=== PATIENT | male | born 1970 | race African-American/Black ===

== ENCOUNTER 2020-10-28 17:59 | Inpatient (IN) | payer MEDICAID, OTHER ==
[~2020-10-28] VITALS: Ht 162.6 cm; Wt 128.3 kg
[2020-10-28] VITALS (8 sets, daily range): BP systolic 98–144; BP diastolic 48–87
[~2020-10-28 17:59] MED LIST: ATOR20TA PO; HYDR-2761 PO; INSU100I13 SQ; LEXAPRO20 MG PO; LISI20TA18 PO; LORA0.5T PO; OMEP20TA8 PO; SERT50TA PO; TRAM50TA PO; TRAZ-118 PO
[2020-10-28] MEDS ORDERED: CYCL10TA2 PO (18:06)
[2020-10-28] MEDS ORDERED: GABA300C18 PO (18:06)
[2020-10-28] MEDS ORDERED: INSU100I13 SQ (18:06)
[2020-10-28] MEDS ORDERED: TRAZ-123 PO (18:06)
[2020-10-28] MEDS ORDERED: INDO25CA21 PO (18:06)
[2020-10-28] MEDS ORDERED: ALLO300T PO (18:06)
[2020-10-28] MEDS ORDERED: OMEP40CA7 PO (18:06)
[2020-10-28] MEDS ORDERED: ATOR20TA58 PO (18:06)
[2020-10-28] MEDS ORDERED: CETI10TA16 PO (18:06)
[2020-10-28] MEDS ORDERED: LISI20TA18 PO (18:06)
[2020-10-28] MEDS ORDERED: AMLO-187 PO (18:06)
--- NOTE | 2020-10-28 18:23 | NUR ---
Pt admitted to room 114 from [facility] ER via EMS at 1730. Pt able to transfer self to bed. Placed on monitor equipment, ST on monitor. O2 sats 98% on 15L NRB. Denies pain. Dr. Collins notified of pts admission and new orders received. See admission for further details.
[2020-10-28] MEDS: ALBUTEROL SULFATE 2.5 MG/3 ML NEBU. NEB SCH (20:42)
[2020-10-28] MEDS ORDERED: NON FORMULARY ITEM (Insulin Glargine,Hum.rec.anlog (Lantus Solostar) 50 UNIT) SQ SCH (21:00)
[2020-10-28] MEDS ORDERED: INDOMETHACIN 25 MG CAPSULE. PO SCH (21:00)
[2020-10-28] MEDS: GABAPENTIN 300 MG CAPSULE. PO SCH (21:17)
[2020-10-28] MEDS: traZODone 100 MG TABLET. PO SCH (21:17)
[2020-10-28] MEDS: LORazepam 0.5 MG TABLET PO SCH (21:17)
[2020-10-28] MEDS: CYCLOBENZAPRINE 10 MG TABLET. PO SCH (21:17)
[2020-10-28] MEDS: INSULIN GLARGINE SYRINGE. SQ SCH (21:18)
[2020-10-28] MEDS: HYDROcodone/APAP 5/325MG 1 TAB TABLET PO PRN (21:18)
[2020-10-28] MEDS: ATORVASTATIN CALCIUM 20 MG TABLET PO SCH (21:18)
[2020-10-29] VITALS (18 sets, daily range): BP systolic 104–161; BP diastolic 63–93
[2020-10-29 05:23] LABS: BASO % 0 % (0-3); EOS % 0 % (0-3); HEMATOCRIT 34.7 % (39.0-53.0); HEMOGLOBIN 11.1 g/dL (13.0-17.5); LYMPH # 0.7 x10^3/uL (1.0-4.8); LYMPH % 3 % (24-48); MEAN CORPUSCULAR HEMOGLOBIN 28 pg (25-35); MEAN CORPUSCULAR HGB CONC 32 g/dL (31-37); MEAN CORPUSCULAR VOLUME 88 fL (79-100); MONO # 0.2 x10^3/uL (0.0-1.1); MONO % 1 % (0-9); NEUT # 23.7 x10^3/uL (1.8-7.7); NEUT % 97 % (31-73); PLATELET COUNT 244 x10^3/uL (140-400); RED BLOOD COUNT 3.93 x10^6/uL (4.30-5.70); RED CELL DISTRIBUTION WIDTH 14.6 % (11.5-14.5); WHITE BLOOD COUNT 24.6 x10^3/uL (4.0-11.0)
[2020-10-29 05:50] LABS: ALBUMIN/GLOBULIN RATIO 0.7 (1.0-1.7); CALCIUM 8.1 mg/dL (8.5-10.1); CREATININE 2.6 mg/dL (0.7-1.3); GFR 31.8; TOTAL BILIRUBIN 0.5 mg/dL (0.2-1.0); TOTAL PROTEIN 7.3 g/dL (6.4-8.2)
[2020-10-29 05:53] LABS: POTASSIUM 6.8 mmol/L (3.5-5.1)
[2020-10-29] MEDS ORDERED: CALCIUM GLUCONATE 1,000 MG/10 ML VIAL. IVP ONE (06:30)
[2020-10-29] MEDS: ALBUTEROL SULFATE 2.5 MG/3 ML NEBU. NEB SCH ×4 (06:38→20:00)
[2020-10-29 06:57] LABS: % LYMPHS 1 % (24-48); % SEGS 99 % (35-66); PLT ESTIMATE ADEQUATE (ADEQUATE)
[2020-10-29 06:58] LABS: POLYCHROMASIA SLIGHT
[2020-10-29] MEDS ORDERED: SODIUM BICARB ADULT 8.4% 50 MEQ/50 ML DISP.SYRIN. IV ONE (07:00)
[2020-10-29] MEDS ORDERED: INSULIN REGULAR 100 UNIT/ML 3ML VIAL. IV ONE (07:00)
[2020-10-29] MEDS ORDERED: DEXTROSE 50% 25 GM / 50ML DISP.SYRIN. IV ONE (07:00)
--- NOTE | 2020-10-29 07:37 | RAD ---
Single AP view of the chest. Comparison: None. Indication: Pneumonia Findings: The heart is not enlarged. There is no pneumothorax or effusion. Right upper lobe consolidation is i dentified. Impression: 1. Right upper lobe consolidated pneumonia. Electronically signed by: Dax Huffman MD (10/29/2020 7:34 AM) [id number]
[2020-10-29] MEDS: HYDROcodone/APAP 5/325MG 1 TAB TABLET PO PRN ×2 (07:50→20:32)
[2020-10-29] MEDS: PANTOPRAZOLE 40 MG TABLET.DR. PO SCH (07:50)
--- NOTE | 2020-10-29 08:28 | PDOC ---
PULMONARY PROGRESS NOTES DATE: 10/29/20 TIME: 08:28 Vitals Vital Signs Date Time Temp Pulse Resp B/P (MAP) Pulse Ox O2 Delivery O2 Flow Rate FiO2 10/29/20 08:00 98.4 110 13 127/66 (86) 100 Venturi Mask 15.0 98.4 Labs Laboratory Tests Test 10/28/20 21:22 10/29/20 03:30 10/29/20 07:43 Glucose (Fingerstick) 218 mg/dL (70-99) 215 mg/dL (70-99) White Blood Count 24.6 x10^3/uL (4.0-11.0) Red Blood Count 3.93 x10^6/uL (4.30-5.70) Hemoglobin 11.1 g/dL (13.0-17.5) Hematocrit 34.7 % (39.0-53.0) Mean Corpuscular Volume 88 fL (79-100) Mean Corpuscular Hemoglobin 28 pg (25-35) Mean Corpuscular Hemoglobin Concent 32 g/dL (31-37) Red Cell Distribution Width 14.6 % (11.5-14.5) Platelet Count 244 x10^3/uL (140-400) Neutrophils (%) (Auto) 97 % (31-73) Lymphocytes (%) (Auto) 3 % (24-48) Monocytes (%) (Auto) 1 % (0-9) Eosinophils (%) (Auto) 0 % (0-3) Basophils (%) (Auto) 0 % (0-3) Neutrophils # (Auto) 23.7 x10^3/uL (1.8-7.7) Lymphocytes # (Auto) 0.7 x10^3/uL (1.0-4.8) Monocytes # (Auto) 0.2 x10^3/uL (0.0-1.1) Eosinophils # (Auto) 0.0 x10^3/uL (0.0-0.7) Basophils # (Auto) 0.0 x10^3/uL (0.0-0.2) Segmented Neutrophils % 99 % (35-66) Lymphocytes % 1 % (24-48) Platelet Estimate Adequate (ADEQUATE) Polychromasia Slight Basophilic Stippling Present Sodium Level 136 mmol/L (136-145) Potassium Level 6.8 mmol/L (3.5-5.1) Chloride Level 100 mmol/L (98-107) Carbon Dioxide Level 28 mmol/L (21-32) Anion Gap 8 (6-14) Blood Urea Nitrogen 41 mg/dL (8-26) Creatinine 2.6 mg/dL (0.7-1.3) Estimated GFR (Cockcroft-Gault) 31.8 BUN/Creatinine Ratio 16 (6-20) Glucose Level 265 mg/dL (70-99) Uric Acid 6.3 mg/dL (3.5-7.2) Calcium Level 8.1 mg/dL (8.5-10.1) Total Bilirubin 0.5 mg/dL (0.2-1.0) Aspartate Amino Transf (AST/SGOT) 21 U/L (15-37) Alanine Aminotransferase (ALT/SGPT) 21 U/L (16-63) Alkaline Phosphatase 105 U/L (46-116) Total Protein 7.3 g/dL (6.4-8.2) Albumin 3.0 g/dL (3.4-5.0) Albumin/Globulin Ratio 0.7 (1.0-1.7) Laboratory Tests Test 10/28/20 21:22 10/29/20 03:30 10/29/20 07:43 Glucose (Fingerstick) 218 mg/dL (70-99) 215 mg/dL (70-99) White Blood Count 24.6 x10^3/uL (4.0-11.0) Red Blood Count 3.93 x10^6/uL (4.30-5.70) Hemoglobin 11.1 g/dL (13.0-17.5) Hematocrit 34.7 % (39.0-53.0) Mean Corpuscular Volume 88 fL (79-100) Mean Corpuscular Hemoglobin 28 pg (25-35) Mean Corpuscular Hemoglobin Concent 32 g/dL (31-37) Red Cell Distribution Width 14.6 % (11.5-14.5) Platelet Count 244 x10^3/uL (140-400) Neutrophils (%) (Auto) 97 % (31-73) Lymphocytes (%) (Auto) 3 % (24-48) Monocytes (%) (Auto) 1 % (0-9) Eosinophils (%) (Auto) 0 % (0-3) Basophils (%) (Auto) 0 % (0-3) Neutrophils # (Auto) 23.7 x10^3/uL (1.8-7.7) Lymphocytes # (Auto) 0.7 x10^3/uL (1.0-4.8) Monocytes # (Auto) 0.2 x10^3/uL (0.0-1.1) Eosinophils # (Auto) 0.0 x10^3/uL (0.0-0.7) Basophils # (Auto) 0.0 x10^3/uL (0.0-0.2) Segmented Neutrophils % 99 % (35-66) Lymphocytes % 1 % (24-48) Platelet Estimate Adequate (ADEQUATE) Polychromasia Slight Basophilic Stippling Present Sodium Level 136 mmol/L (136-145) Potassium Level 6.8 mmol/L (3.5-5.1) Chloride Level 100 mmol/L (98-107) Carbon Dioxide Level 28 mmol/L (21-32) Anion Gap 8 (6-14) Blood Urea Nitrogen 41 mg/dL (8-26) Creatinine 2.6 mg/dL (0.7-1.3) Estimated GFR (Cockcroft-Gault) 31.8 BUN/Creatinine Ratio 16 (6-20) Glucose Level 265 mg/dL (70-99) Uric Acid 6.3 mg/dL (3.5-7.2) Calcium Level 8.1 mg/dL (8.5-10.1) Total Bilirubin 0.5 mg/dL (0.2-1.0) Aspartate Amino Transf (AST/SGOT) 21 U/L (15-37) Alanine Aminotransferase (ALT/SGPT) 21 U/L (16-63) Alkaline Phosphatase 105 U/L (46-116) Total Protein 7.3 g/dL (6.4-8.2) Albumin 3.0 g/dL (3.4-5.0) Albumin/Globulin Ratio 0.7 (1.0-1.7) Medications Active Scripts Medications Dose Route/Sig Max Daily Dose Days Date Category Dose Instructions Cyclobenzaprine Hcl 10 Mg Tablet 1 Tab PO TID 10/28/20 Reported Cetirizine Hcl 10 Mg Tablet 1 Tab PO DAILY 10/28/20 Reported Trazodone Hcl 100 Mg Tablet 1 Tab PO QHS 10/28/20 Reported Omeprazole 40 Mg Capsule.dr 1 Cap PO DAILY 10/28/20 Reported Lisinopril 20 Mg Tablet 1 Tab PO DAILY 10/28/20 Reported Lantus Solostar (Insulin Glargine,Hum.rec.anlog) 100 Unit/1 Ml Insuln.pen 50 Unit SQ QHS 10/28/20 Reported Indomethacin 25 Mg Capsule Unknown Dose PO TID 10 10/28/20 Reported with food Gabapentin (Gabapentin) 300 Mg Capsule 300 Mg PO TID 10/28/20 Reported Atorvastatin Calcium 20 Mg Tablet 1 Tab PO DAILY 10/28/20 Reported Amlodipine Besylate 10 Mg Tablet 10 Mg PO DAILY 10/28/20 Reported Allopurinol 300 Mg Tablet 1 Tab PO DAILY 10/28/20 Reported Hydrocodone-Apap 5-325 (Hydrocodone Bit/Acetaminophen) 1 Each Tablet 2 Tab PO BID PRN 04/07/15 Reported Lorazepam 0.5 Mg Tablet 1 Tab PO BID 04/07/15 Reported Zoloft (Sertraline Hcl) 50 Mg Tablet 1 Tab PO DAILY 04/07/15 Reported Lantus Solostar (Insulin Glargine,Hum.rec.anlog) 100 Unit/1 Ml Insuln.pen 50 Unit SQ QHS 04/07/15 Reported Impression . Full note dictated Acute hypoxemic hypercapnic respiratory failure Right upper lobe pneumonia Morbid obesity Obstructive sleep apnea Okay to transfer out of the intensive care unit see orders RICHARD SCHROEDER MD Oct 29, 2020 08:28
[2020-10-29] MEDS ORDERED: LISINOPRIL 20 MG TABLET PO SCH (09:00)
[2020-10-29] MEDS: GABAPENTIN 300 MG CAPSULE. PO SCH ×3 (09:00→20:32)
[2020-10-29] MEDS ORDERED: IV DEXTROSE 5% 250 ML BAG. IV PRN (09:00)
[2020-10-29] MEDS: CYCLOBENZAPRINE 10 MG TABLET. PO SCH ×3 (09:00→20:32)
[2020-10-29] MEDS ORDERED: DEXTROSE 50% 25 GM / 50ML DISP.SYRIN. IV PRN (09:00)
[2020-10-29] MEDS: LORazepam 0.5 MG TABLET PO SCH ×2 (09:00→20:32)
[2020-10-29 09:08] LABS: BASE EXCESS ABG -1 mmol/L (-3-3); HCO3 ABG 27 mmol/L (21-28); PO2 ABG 91 mmHg (75-108); SAT O2 ABG 96 % (92-99)
[2020-10-29 09:10] LABS: FIO2 ABG 12L; PCO2 ABG 61 mmHg (35-46)
[2020-10-29 09:27] LABS: CALCIUM 8.6 mg/dL (8.5-10.1); CREATININE 2.6 mg/dL (0.7-1.3); GFR 31.8; POTASSIUM 5.2 mmol/L (3.5-5.1)
[2020-10-29] MEDS: PIPERACILLIN/TAZOBACTAM 3.375 GM in IV NORMAL SALINE 50ML 50 ML IV SCH ×2 (09:32→17:13)
[2020-10-29] MEDS: IV NORMAL SALINE 1000ML BAG 1,000 ML IV SCH ×2 (09:32→20:37)
--- NOTE | 2020-10-29 09:51 | NUR ---
Pt is very drowsy and falls asleep during conversation. Scheduled 0900 Ativan and Flexeril held.
--- NOTE | 2020-10-29 10:14 | HP ---
ADMIT DATE: 10/29/2020 HISTORY OF PRESENT ILLNESS: The patient is a 49-year-old -[place] male patient who was seen yesterday at [facility] Emergency Room with a complaint of shortness of breath. The patient stated that his symptoms started about 4 days prior to arrival to the Emergency Room without any known inciting events, trauma or ____. He states that he has been outside more and his allergies ____. He denied any insect bite or other concerning exposure. He initially reported upper respiratory tract infection like symptoms with runny nose and nasal congestion, which he reports migrated to his lungs. Denied any pain, just overall chest tightness and shortness of breath and wheezing which is new for him. He had been a heavy smoker. He used to smoke a pack a day, quit smoking about 7 years ago. He continued to have occasional alcohol drinks, particularly when he watches football games and takes 2-3 beers. He denied any illicit drugs. He denied any fever, headache, lightheadedness, vision changes. He apparently has received his COVID vaccine twice. He was extensively investigated in the Emergency Room. His lab work showed a white cell count 22,900. His blood gases showed a pH of 7.32, pCO2 of 52 and his chemistry showed that his creatinine is up to 2.4. He had also low magnesium. His initial chest x-ray showed the patient has patchy perihilar airspace disease with focal rounded areas of consolidation at the upper to mid zone on the right. This could be related to pneumonia, right upper lobe mass cannot be excluded. Recommend followup imaging and he was initially treated with BiPAP machine. A decision was made to transfer him to [facility] with diagnosis of acute hypoxic respiratory failure, right upper lobe pneumonia, acute kidney injury, poorly controlled type 2 diabetes mellitus and hypertension. Apparently while in the Emergency Room and on his way out, apparently his gurney was tilted to the right side, the patient fell to the ground, when the patient was still trapped, C-spine precautions immediately initiated, ER staff assisted with unbuckling and removing patient safely from scene, impacted into the ER. Vitals obtained and were unremarkable. His primary and secondary survey performed. He did complain of pain in his right upper extremity, right-sided head pain and cervical vertebral pain after a fall. He was transported CT and radiographs imaging performed. 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 PAST MEDICAL HISTORY: Significant for type 2 diabetes mellitus and hypertension. He has apparently history of alcoholism and alcoholic liver disease, acute kidney injury recently as he was admitted to [facility] with acute gastroenteritis and acute kidney injury. His baseline creatinine was about 1.2 mg/dL on 09/17/2020. He also has morbid obesity and obstructive sleep apnea. PAST SURGICAL HISTORY: Noncontributory. ALLERGIES: He has no known drug allergies. MEDICATIONS: He is currently on following medications: He is on sertraline 50 mg once a day, cetirizine 10 mg once a day, amlodipine 10 mg once a day, Protonix 40 mg once a day, Lantus insulin 50 units at bedtime, trazodone 100 mg at bedtime, lorazepam 0.5 mg twice a day, gabapentin 300 mg 3 times a day, cyclobenzaprine 10 mg 3 times a day, atorvastatin 20 mg at bedtime. He is also on hydrocodone/APAP 5/325 two tablets twice a day, lisinopril 20 mg daily. He is also on indomethacin 25 mg 3 times a day. FAMILY HISTORY: He has 3 brothers and 3 sisters, all older and apparently healthy. His father at age of 77 because of complication of Agent [place] and COPD. Mother is still alive at the age of 78 and known to have diabetes and hypertension. SOCIAL HISTORY: He is single, never , has no children. He quit smoking about 5 years ago. He used to smoke a pack a day. He also used to be a heavy alcohol drinker, quit 2 years ago. He continued to have occasional alcohol, mostly when he watches a football games on the weekends, he drinks 2-3 cans of beer. Apparently he is on disability because of his chronic back pain. REVIEW OF SYSTEMS: As per history of present illness. PHYSICAL EXAMINATION: GENERAL: On arrival to the Emergency Room, the patient looked well and was clearly in no apparent respiratory distress. No pallor, jaundice, cyanosis, or thyromegaly. No jugular venous distention, no lower limb edema. VITAL SIGNS: His heart rate was 124, blood pressure is 128/69, temperature was 99.7, respiratory rate was 26 and oxygen saturation was 83% on room air, requiring 15 liters of oxygen to get his oxygen up to 92%. HEAD, EYES, EARS, NOSE, AND THROAT: Normocephalic, atraumatic. NECK: Supple. HEART: Showed normal first and second heart sounds, no gallop, murmur. CHEST: Shows central trachea, equal reduced expansion, reduced air entry, vesicular breath sounds. No crepitation or rhonchi. ABDOMEN: Markedly distended, soft, nontender. NEUROLOGIC: He was awake, alert, responding appropriately. Cranial nerves intact. He moves extremities without difficulty. LABORATORY DATA: His lab work on arrival showed a white cell count 22,900, hemoglobin 11.6, hematocrit 36, MCV 88 and platelet count 270,000 with normal manual differential. His chemistry showed a serum sodium 137, potassium 4.9, chloride 100, bicarbonate 27, anion gap of 10, BUN of 30, creatinine was 2.4. Estimated GFR was 28.8 mL per minute. His glucose was 163, calcium was 7.5, magnesium was 1.5. Total bilirubin, AST, ALT were normal. Alkaline phosphatase slightly elevated, beta natriuretic peptide was 323. Total protein was 6.9, albumin was 3.1. First set of cardiac enzymes was less than 0.017. His venous blood gas showed a pH of 7.32, pCO2 of 52, pO2 of 91, bicarbonate 27 and oxygen saturation was 96% on FIO2 of 15%. His chest x-ray showed a single upright portable exam performed showing lung volumes are low limiting evaluation. There is a focal rounded area of consolidation of the upper and mid zone of the right lung, new from prior study. There is also some patchy and linear opacities at the perihilar region and medial left base, no apparent pleural effusion or pneumothorax. After he fell, he underwent CT scan of the head and cervical spine, which showed no acute intracranial process, no acute osseous abnormality of the cervical spine allowing for significant motion artifact. She has right apical consolidation, possibly infection or contusion given history of trauma, partial imaged cystic mass in the sublingual space, measuring 4.9 cm, suspect process such as a thyroglossal duct cyst. Comparison with prior imaging may be helpful to assess stability if available, otherwise followup contrast enhanced CT of the tissue neck or MRI should be obtained. X-ray of the pelvis showed no acute osseous process in the right shoulder, humerus, forearms and pelvis, demonstrated patchy right perihilar airspace opacity, could represent pneumonia. Recommend followup after treatment completion to ensure resolution. ASSESSMENT AND PLAN: The patient was admitted to [facility] with acute hypoxic respiratory failure. He was on BiPAP machine. He has right upper lobe pneumonia, marked leukocytosis, acute kidney injury, type 2 diabetes mellitus that is poorly controlled and hypertension. We will continue with IV Rocephin and Zithromax. I reconciled all his medications. We will consult the speech coach as well as the kidney specialist. YAN/BIJAN/SAUL DR: Saravanan TID: [id number]
--- NOTE | 2020-10-29 10:30 | CONS ---
DATE OF CONSULTATION: 10/29/2020 REFERRING PHYSICIAN: Dr. Collins. REASON FOR CONSULTATION: Right upper lobe pneumonia, antibiotic management. HISTORY OF PRESENT ILLNESS: A 49-year-old male with history of diabetes, poorly controlled; asthma; hypertension, presented to [facility] ED on 10/28/2020 with worsening shortness of breath. He had onset about 4 days prior to admission, he had received COVID vaccine. Denies any history of COVID exposure. He did have some runny nose and nasal congestion. Denied any fevers, chills. White count was 22.9 thousand and fever of 99.7. BNP of 323. Creatinine was 2.4. Lactate of 1.7. Normal liver functions and troponin. He received ceftriaxone, azithromycin, Lasix. Chest x-ray revealed patchy perihilar airspace disease with focal rounded area of consolidation at the right to mid zone on the right, right upper lobe mass cannot be excluded. The patient also underwent extensive evaluation due to fall on the left side in the ER with chest, pelvis, right humerus, right shoulder, and right forearm x-rays, which did not show any fracture. He also had CT of the head and cervical spine, which showed no acute intracranial process, no acute osseous abnormality of the cervical spine, continued to show right apical consolidation, possibly infection or contusion given history of trauma. 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 The patient was transferred to [facility] for ICU admission and continued care. Currently, he is on IV Rocephin and azithromycin. White count this morning is 24.6, hemoglobin of 11.1, platelets of 244, segments of 99. Potassium is 6.8, creatinine of 2.6, glucose of 265. Uric acid of 6.3, albumin of 3.0. Repeat chest x-ray here shows right upper lobe consolidation pneumonia. The patient is on 15 liters of O2 in ICU, not on pressors. Afebrile. He complains of pain mainly over the right side of the head, shoulder, chest wall, upper extremity due to history of fall. He has shortness of breath. Does have some cough and also has chest pain on the right side when he takes a deep breath. Denies any nausea, vomiting, diarrhea, abdominal pain. Of note, the patient had recently been discharged from [facility] on 10/11/2020 with gastroenteritis, which was self-limiting with dehydration, ANUPAMA due to dehydration. Creatinine came down from 2.1 to 1.6. C. diff toxin was negative. The patient was given supportive care. Denies being on any antibiotics prior to admission. PAST MEDICAL HISTORY: Asthma, diabetes, hypertension, history of gout, morbid obesity, recent admission of gastroenteritis. SOCIAL HISTORY: Nonsmoker. Alcohol rarely, no drug use. Lives alone. No pets. Unemployed. ALLERGIES: No known drug allergies. CURRENT MEDICATIONS: IV Rocephin and azithromycin. REVIEW OF SYSTEMS: Negative except for above in HPI. PHYSICAL EXAMINATION: VITAL SIGNS: Temperature 98.4, pulse 110, respirations 17, blood pressure 127/66, oxygen saturation 98% on 12 liters O2 by nasal cannula. GENERAL: Morbidly obese, alert, awake, oriented x 3 male lying in bed on nasal O2. HEENT: Normocephalic, atraumatic. No thrush, no oropharyngeal exudate. NECK: Supple. Unable to examine the neck due to short, stocky neck. LUNGS: Decreased breath sounds on the right upper lobe. No wheezing. HEART: S1, S2, tachycardia. No murmurs appreciated. ABDOMEN: Obese, soft, nontender, nondistended. Bowel sounds present. EXTREMITIES: No edema, no cyanosis except for trace right upper extremity edema. NEUROLOGIC: Alert and oriented x 3, grossly nonfocal. PSYCHIATRIC: Calm and cooperative. DERM: Warm, dry, no generalized rash. LABORATORY DATA: WBC 24.6, hemoglobin 11.1, hematocrit 34.7, platelets 244. Sodium 136, potassium 6.8, chloride 100, bicarbonate 28, BUN 41, creatinine 2.6, glucose 265. Uric acid 6.3, calcium 8.1. LFTs are normal. Albumin 3.0. IMAGIN. Chest x-ray, right upper lobe pneumonia. 2. CT head and cervical spine at outside hospital as above. 3. X-ray of the chest, pelvis, right humerus, right shoulder, right forearm at outside hospital reviewed. IMPRESSION: 1. Acute hypoxic respiratory failure. 2. Right upper lobe pneumonia. 3. Leukocytosis, also received prednisone at outside hospital. 4. Acute kidney injury with hyperkalemia. 5. Diabetes mellitus, poorly controlled. 6. History of fall. 7. History of asthma. 8. History of recent gastroenteritis. RECOMMENDATIONS: 1. Discontinue ceftriaxone and broaden empiric antibiotics to Zosyn due to recent hospitalization. Will need renal adjustment. 2. Continue azithromycin. 3. CT chest without contrast due to ANUPAMA. 4. Follow up labs and cultures. 5. Continue supportive care. 6. Maintain aspiration precaution. 7. Pulmonary consulted. Thank you, Dr. Collins for consulting Infectious Disease to participate in this patient's care. If you have any questions, do not hesitate to contact me. HÉCTOR/SUSI DR: Madison TID: [id number] MTDD
--- NOTE | 2020-10-29 10:38 | NUR ---
SS following for discharge planning. SS reviewed pt chart and discussed with pt RN. Pt is from home and is currently on the BIPAP at 40%. Pt on IV Azithromycin and IV Zosyn. SS will continue to follow for discharge planning.
--- NOTE | 2020-10-29 11:32 | PDOC2 ---
CONSULT Date of Consult Date of Consult DATE: 10/29/20 TIME: 11:05 Reason for Consult Reason for Consult: ANUPAMA, Hyperkalemia Source Source: Chart review, Patient History of Present Illness Reason for Visit: Pt is a 49-year-old AA male with history of poorly controlled; diabetes,asthma; hypertension, presented to [facility] on 10/28/2020 with worsening shortness of breath. He had onset about 4 days prior to admission, initial symptoms with runny nose and nasal congestion,he had received COVID vaccine. Denies any history of COVID exposure. Denied any fevers, chills. Reports overall chest tightness and shortness of breath and wheezing which is new for him. He had been a heavy smoker. He used to smoke a pack a day, quit smoking about 7 years ago. He continued to have occasional alcohol drinks, He denies any illicit drugs. Denies any fever, headache, lightheadedness, vision changes.He is c/o pain mainly over the right side of the head, shoulder, chest wall, upper extremity due to history of fall.Currently denies any nausea, vomiting, diarrhea, abdominal pain. He states he was recently discharged from [facility] on 10/11/2020 with gastroenteritis- severe diarrhea , with dehydration, ANUPAMA due to dehydration. Creatinine peaked at 2.1 to 1.6 at discharge . He states he is not sure if he received potassium during his hospitalization and dc He states he probably has some abnormal kidney function but has never bee referred to Nephrology He has Hx of Gout- states he takes Indomethacin pretty often due to flares. Denies use os any other NSAID's . Denies any Hx of Kidney stones. Denies any urinary complaints. Reports he is not aware of any Dx of BPH, No hx of Urinary retention in the past He was was transferred to [facility] for ICU admission .Currently he is on high flow NC 15 liters of O2 in ICU, not on pressors. . Past Medical History Cardiovascular: HTN Pulmonary: No pertinent hx, Other CENTRAL NERVOUS SYSTEM: Periperal neuropathy GI: Constipation, GERD, GI bleed Heme/Onc: No pertinent hx Hepatobiliary: No pertinent hx, Other Psych: Anxiety, Depression Musculoskeletal: Other Infectious disease: No pertinent hx Renal/: No pertinent hx Endocrine: Diabetes, Other Social History ALCOHOL: none Drugs: None Current Medications Current Medications Current Medications Ceftriaxone Sodium (Rocephin) 1 gm Q24H IVP ; Start 10/29/20 at 13:00; Stop at 09:09; Status DC Azithromycin 250 mg/Sodium Chloride 250 ml @ 250 mls/hr Q24H IV ; Start 10/29/20 at 13:00 Amlodipine Besylate (Norvasc) 10 mg DAILY PO ; Start 10/29/20 at 09:00 Atorvastatin Calcium (Lipitor) 20 mg QHS PO Last administered on 10/28/20at 21:18; Start 10/28/20 at 21:00 Cetirizine HCl (ZyrTEC) 10 mg DAILY PO ; Start 10/29/20 at 09:00 Cyclobenzaprine HCl (Flexeril) 10 mg TID PO Last administered on 10/28/20at 21:17; Start 10/28/20 at 21:00 Gabapentin (Neurontin) 300 mg TID PO Last administered on 10/28/20at 21:17; Start 10/28/20 at 21:00 Acetaminophen/ Hydrocodone Bitart (Lortab 5/325) 2 tab PRN BID PRN PO PAIN Last administered on 10/29/20at 07:50; Start 10/28/20 at 18:30 Indomethacin (Indocin) 25 mg TID PO Last administered on 10/28/20at 21:17; Start 10/28/20 at 21:00; Stop 10/29/20 at 08:12; Status DC Lisinopril (Prinivil) 20 mg DAILY PO ; Start 10/29/20 at 09:00; Stop 10/29/20 at 08:12; Status DC Lorazepam (Ativan) 0.5 mg BID PO Last administered on 10/28/20at 21:17; Start 10/28/20 at 21:00 Sertraline HCl (Zoloft) 50 mg DAILY PO ; Start 10/29/20 at 09:00 Trazodone HCl (Desyrel) 100 mg QHS PO Last administered on 10/28/20at 21:17; Start 10/28/20 at 21:00 Insulin Glargine (Lantus Syringe) 50 unit QHS SQ Last administered on 10/28/20at 21:18; Start 10/28/20 at 21:00 Non-Formulary Medication (Insulin Glargine,Hum.rec.anlog (Lantus Solostar)) 50 unit QHS SQ ; Start 10/28/20 at 21:00; Status UNV Pantoprazole Sodium (Protonix) 40 mg DAILYAC PO Last administered on 10/29/20at 07:50; Start 10/29/20 at 07:30 Albuterol Sulfate (Ventolin Neb Soln) 2.5 mg RTQID NEB Last administered on 10/29/20at 06:38; Start 10/28/20 at 20:00 Calcium Gluconate (Calcium Gluconate) 1,000 mg 1X ONCE IVP Last administered on 10/29/20at 06:28; Start 10/29/20 at 06:30; Stop 10/29/20 at 06:31; Status DC Sodium Bicarbonate (Sodium Bicarb Adult 8.4% Syr) 50 meq 1X ONCE IV Last administered on 10/29/20at 06:37; Start 10/29/20 at 07:00; Stop 10/29/20 at 07:01; Status DC Dextrose (Dextrose 50%-Water Syringe) 25 gm 1X ONCE IV Last administered on 10/29/20at 06:37; Start 10/29/20 at 07:00; Stop 10/29/20 at 07:01; Status DC Insulin Human Regular (HumuLIN R VIAL) 10 unit 1X ONCE IV Last administered on 10/29/20at 06:38; Start 10/29/20 at 07:00; Stop 10/29/20 at 07:01; Status DC Sodium Chloride 1,000 ml @ 100 mls/hr Q10H IV Last administered on 10/29/20at 09:32; Start 10/29/20 at 08:45 Insulin Human Lispro (HumaLOG) 0-7 UNITS TIDWMEALS SQ ; Start 10/29/20 at 12:00 Dextrose (Dextrose 50%-Water Syringe) 12.5 gm PRN Q15MIN PRN IV SEE COMMENTS; Start 10/29/20 at 09:00 Dextrose (Iv Dextrose 5%) 250 ml PRN Q15MIN PRN IV SEE COMMENTS; Start 10/29/20 at 09:00; Status UNV Piperacillin Sod/ Tazobactam Sod 3.375 gm/Sodium Chloride 50 ml @ 100 mls/hr Q6HRS IV Last administered on 10/29/20at 09:32; Start 10/29/20 at 10:00 Lactobacillus Rhamnosus (Culturelle) 1 cap BID PO ; Start 10/29/20 at 21:00 Active Scripts Active Reported Cyclobenzaprine Hcl 10 Mg Tablet 1 Tab PO TID Cetirizine Hcl 10 Mg Tablet 1 Tab PO DAILY Trazodone Hcl 100 Mg Tablet 1 Tab PO QHS Omeprazole 40 Mg Capsule.dr 1 Cap PO DAILY Lisinopril 20 Mg Tablet 1 Tab PO DAILY Lantus Solostar (Insulin Glargine,Hum.rec.anlog) 100 Unit/1 Ml Insuln.pen 50 Unit SQ QHS Indomethacin 25 Mg Capsule Unknown Dose PO TID 10 Days with food Gabapentin (Gabapentin) 300 Mg Capsule 300 Mg PO TID Atorvastatin Calcium 20 Mg Tablet 1 Tab PO DAILY Amlodipine Besylate 10 Mg Tablet 10 Mg PO DAILY Allopurinol 300 Mg Tablet 1 Tab PO DAILY Hydrocodone-Apap 5-325 (Hydrocodone Bit/Acetaminophen) 1 Each Tablet 2 Tab PO BID PRN Lorazepam 0.5 Mg Tablet 1 Tab PO BID Zoloft (Sertraline Hcl) 50 Mg Tablet 1 Tab PO DAILY Lantus Solostar (Insulin Glargine,Hum.rec.anlog) 100 Unit/1 Ml Insuln.pen 50 Unit SQ QHS Allergies Allergies: Coded Allergies: No Known Drug Allergies (Unverified , 04/07/15) ROS Review of System As per HPI, rest of the ros is negative Physical Exam Physical Exam GENERAL: Morbidly obese, mild distress, propped up in bed HEENT: Normocephalic, atraumatic. OM moist, On o2 by NC - high flow NECK: Supple. neck due to short and stocky LUNGS: Decreased breath sounds on the right upper lobe and bases, HEART: S1, S2, tachycardia. ABDOMEN: Obese, soft, nontender, nondistended. Bowel sounds present. EXTREMITIES: No edema, no cyanosis , Bilat LE edema 1- 2+ NEUROLOGIC: Alert and oriented x 3, grossly nonfocal. PSYCHIATRIC: Calm and cooperative. DERM: Warm, dry, no generalized rash Ahn +, No CVA or SP tenderness Vital Signs Vital Signs Date Time Temp Pulse Resp B/P (MAP) Pulse Ox O2 Delivery O2 Flow Rate FiO2 10/29/20 10:00 99 12 104/65 (78) 100 BiPAP/CPAP 10/29/20 09:30 12.0 10/29/20 08:00 98.4 98.4 Assessment & Plan ANUPAMA - ATN/ urinary retention , recd IV lasix at OSH ; Hx of ANUPAMA in mid September 26 Diarrhea/Dehydration Cr 2.1--> at dc 1.6; prior baseline not available Bladder scan ordered with Urinary retention - 850 ml Urine, Monitor , If no improvement in renal function, Recommend imaging (CT Abdomen and Pelvis) , supportive care, strict i/o, avoid nephrotoxins HyperKalemia- Paged by nursing with K of 6.8, Ordered Bladder scan and Ca Gluconate, Insulin etc, Has 850 ml of Urine , ahn placed. Repeat K improved to 5.2 Recent gastroenteritis - ANUPAMA /Dehydration Urinary retention - as above , No prior Dx of BPH per patient, follows with his PCP Acute hypoxic respiratory failure - On high flow O2 by JENNIFER Right upper lobe pneumonia - Abx , ID managing Leukocytosis, also received prednisone at outside hospital. Diabetes mellitus, poorly controlled. History of fall. Labs Labs Labs at [facility] White cell count 22,900, hemoglobin 11.6, hematocrit 36, MCV 88 and platelet count 270,000 with normal manual differential. His chemistry showed a serum sodium 137, potassium 4.9, chloride 100, bicarbonate 27, anion gap of 10, BUN of 30, creatinine was 2.4. Estimated GFR was 28.8 mL per minute. His glucose was 163, calcium was 7.5, magnesium was 1.5. Total bilirubin, AST, ALT were normal. Alkaline phosphatase slightly elevated, beta natriuretic peptide was 323. Total protein was 6.9, albumin was 3.1. First set of cardiac enzymes was less than 0.017. His venous blood gas showed a pH of 7.32, pCO2 of 52, pO2 of 91, bicarbonate 27 and oxygen saturation was 96% on FIO2 of 15%. Laboratory Tests Test 10/28/20 21:22 10/29/20 03:30 10/29/20 07:43 10/29/20 08:50 Glucose (Fingerstick) 218 mg/dL (70-99) 215 mg/dL (70-99) White Blood Count 24.6 x10^3/uL (4.0-11.0) Red Blood Count 3.93 x10^6/uL (4.30-5.70) Hemoglobin 11.1 g/dL (13.0-17.5) Hematocrit 34.7 % (39.0-53.0) Mean Corpuscular Volume 88 fL (79-100) Mean Corpuscular Hemoglobin 28 pg (25-35) Mean Corpuscular Hemoglobin Concent 32 g/dL (31-37) Red Cell Distribution Width 14.6 % (11.5-14.5) Platelet Count 244 x10^3/uL (140-400) Neutrophils (%) (Auto) 97 % (31-73) Lymphocytes (%) (Auto) 3 % (24-48) Monocytes (%) (Auto) 1 % (0-9) Eosinophils (%) (Auto) 0 % (0-3) Basophils (%) (Auto) 0 % (0-3) Neutrophils # (Auto) 23.7 x10^3/uL (1.8-7.7) Lymphocytes # (Auto) 0.7 x10^3/uL (1.0-4.8) Monocytes # (Auto) 0.2 x10^3/uL (0.0-1.1) Eosinophils # (Auto) 0.0 x10^3/uL (0.0-0.7) Basophils # (Auto) 0.0 x10^3/uL (0.0-0.2) Segmented Neutrophils % 99 % (35-66) Lymphocytes % 1 % (24-48) Platelet Estimate Adequate (ADEQUATE) Polychromasia Slight Basophilic Stippling Present Sodium Level 136 mmol/L (136-145) Potassium Level 6.8 mmol/L (3.5-5.1) Chloride Level 100 mmol/L (98-107) Carbon Dioxide Level 28 mmol/L (21-32) Anion Gap 8 (6-14) Blood Urea Nitrogen 41 mg/dL (8-26) Creatinine 2.6 mg/dL (0.7-1.3) Estimated GFR (Cockcroft-Gault) 31.8 BUN/Creatinine Ratio 16 (6-20) Glucose Level 265 mg/dL (70-99) Uric Acid 6.3 mg/dL (3.5-7.2) Calcium Level 8.1 mg/dL (8.5-10.1) Total Bilirubin 0.5 mg/dL (0.2-1.0) Aspartate Amino Transf (AST/SGOT) 21 U/L (15-37) Alanine Aminotransferase (ALT/SGPT) 21 U/L (16-63) Alkaline Phosphatase 105 U/L (46-116) Total Protein 7.3 g/dL (6.4-8.2) Albumin 3.0 g/dL (3.4-5.0) Albumin/Globulin Ratio 0.7 (1.0-1.7) O2 Saturation 96 % (92-99) Arterial Blood pH 7.27 (7.35-7.45) Arterial Blood pCO2 at Patient Temp 61 mmHg (35-46) Arterial Blood pO2 at Patient Temp 91 mmHg (75-108) Arterial Blood HCO3 27 mmol/L (21-28) Arterial Blood Base Excess -1 mmol/L (-3-3) FiO2 12l Test 10/29/20 09:05 Sodium Level 138 mmol/L (136-145) Potassium Level 5.2 mmol/L (3.5-5.1) Chloride Level 99 mmol/L (98-107) Carbon Dioxide Level 31 mmol/L (21-32) Anion Gap 8 (6-14) Blood Urea Nitrogen 49 mg/dL (8-26) Creatinine 2.6 mg/dL (0.7-1.3) Estimated GFR (Cockcroft-Gault) 31.8 Glucose Level 234 mg/dL (70-99) Calcium Level 8.6 mg/dL (8.5-10.1) Laboratory Tests Test 10/28/20 21:22 10/29/20 03:30 10/29/20 07:43 10/29/20 08:50 Glucose (Fingerstick) 218 mg/dL (70-99) 215 mg/dL (70-99) White Blood Count 24.6 x10^3/uL (4.0-11.0) Red Blood Count 3.93 x10^6/uL (4.30-5.70) Hemoglobin 11.1 g/dL (13.0-17.5) Hematocrit 34.7 % (39.0-53.0) Mean Corpuscular Volume 88 fL (79-100) Mean Corpuscular Hemoglobin 28 pg (25-35) Mean Corpuscular Hemoglobin Concent 32 g/dL (31-37) Red Cell Distribution Width 14.6 % (11.5-14.5) Platelet Count 244 x10^3/uL (140-400) Neutrophils (%) (Auto) 97 % (31-73) Lymphocytes (%) (Auto) 3 % (24-48) Monocytes (%) (Auto) 1 % (0-9) Eosinophils (%) (Auto) 0 % (0-3) Basophils (%) (Auto) 0 % (0-3) Neutrophils # (Auto) 23.7 x10^3/uL (1.8-7.7) Lymphocytes # (Auto) 0.7 x10^3/uL (1.0-4.8) Monocytes # (Auto) 0.2 x10^3/uL (0.0-1.1) Eosinophils # (Auto) 0.0 x10^3/uL (0.0-0.7) Basophils # (Auto) 0.0 x10^3/uL (0.0-0.2) Segmented Neutrophils % 99 % (35-66) Lymphocytes % 1 % (24-48) Platelet Estimate Adequate (ADEQUATE) Polychromasia Slight Basophilic Stippling Present Sodium Level 136 mmol/L (136-145) Potassium Level 6.8 mmol/L (3.5-5.1) Chloride Level 100 mmol/L (98-107) Carbon Dioxide Level 28 mmol/L (21-32) Anion Gap 8 (6-14) Blood Urea Nitrogen 41 mg/dL (8-26) Creatinine 2.6 mg/dL (0.7-1.3) Estimated GFR (Cockcroft-Gault) 31.8 BUN/Creatinine Ratio 16 (6-20) Glucose Level 265 mg/dL (70-99) Uric Acid 6.3 mg/dL (3.5-7.2) Calcium Level 8.1 mg/dL (8.5-10.1) Total Bilirubin 0.5 mg/dL (0.2-1.0) Aspartate Amino Transf (AST/SGOT) 21 U/L (15-37) Alanine Aminotransferase (ALT/SGPT) 21 U/L (16-63) Alkaline Phosphatase 105 U/L (46-116) Total Protein 7.3 g/dL (6.4-8.2) Albumin 3.0 g/dL (3.4-5.0) Albumin/Globulin Ratio 0.7 (1.0-1.7) O2 Saturation 96 % (92-99) Arterial Blood pH 7.27 (7.35-7.45) Arterial Blood pCO2 at Patient Temp 61 mmHg (35-46) Arterial Blood pO2 at Patient Temp 91 mmHg (75-108) Arterial Blood HCO3 27 mmol/L (21-28) Arterial Blood Base Excess -1 mmol/L (-3-3) FiO2 12l Test 10/29/20 09:05 Sodium Level 138 mmol/L (136-145) Potassium Level 5.2 mmol/L (3.5-5.1) Chloride Level 99 mmol/L (98-107) Carbon Dioxide Level 31 mmol/L (21-32) Anion Gap 8 (6-14) Blood Urea Nitrogen 49 mg/dL (8-26) Creatinine 2.6 mg/dL (0.7-1.3) Estimated GFR (Cockcroft-Gault) 31.8 Glucose Level 234 mg/dL (70-99) Calcium Level 8.6 mg/dL (8.5-10.1) Review All relevant outside records, renal labs, imaging studies, telemetry/EKG's were reviewed. Images Images Chest x-ray- patchy perihilar airspace disease with focal rounded area of consolidation at the right to mid zone on the right, right upper lobe mass cannot be excluded. CT of the head and cervical spine, no acute intracranial process, no acute osseous abnormality of the cervical spine, right apical consolidation reported , possibly infection or contusion given history of trauma. 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 MAYELA GUZMAN MD Oct 29, 2020 11:32
[2020-10-29] MEDS: CETIRIZINE HCL 10 MG TABLET. PO SCH (12:21)
[2020-10-29] MEDS: SERTRALINE 50 MG TABLET. PO SCH (12:21)
[2020-10-29] MEDS: INSULIN LISPRO 300 UNITS/3 ML VIAL. SQ SCH ×2 (12:23→17:12)
[2020-10-29] MEDS: AZITHROMYCIN 250 MG in IV NORMAL SALINE 250ML 250 ML IV SCH (12:42)
[2020-10-29] MEDS ORDERED: cefTRIAXone IV Push 1 GM VIAL. IVP SCH (13:00)
--- NOTE | 2020-10-29 15:15 | RAD ---
CT THORAX WO History: Consolidation on chest x-ray. Technique: Noncontrast CT of the chest was performed. Coronal and sagittal reconstructions were perfo rmed. Exposure: One or more of the following individualized dose reduction techniques were utilized for thi s examination: 1. Automated exposure control 2. Adjustment of the mA and/or kV according to patient size 3. Use of iterative reconstruction technique. Comparison: None Findings: Chest: No pathologic lymphadenopathy. Right upper lobe consolidations with air bronchograms. Right mi ddle lobe groundglass opacities. Bilateral lower lobe linear opacities, most likely atelectasis. No p leural effusion. No pneumothorax. Left upper lobe groundglass opacities. Upper abdomen: The imaged upper abdomen is unremarkable. Bones: No pathologic osseous lesions. Impression: 1. Right upper lobe consolidations with multifocal ground glass opacities bilaterally, concerning fo r pneumonia. Recommend short-term follow-up after treatment. Electronically signed by: Angel Henley DO (10/29/2020 3:13 PM) [facility]
[2020-10-29] MEDS: ATORVASTATIN CALCIUM 20 MG TABLET PO SCH (20:32)
[2020-10-29] MEDS: LACTOBACILLUS RHAMNOSUS GG 1 CAPSULE. PO SCH (20:32)
[2020-10-29] MEDS: traZODone 100 MG TABLET. PO SCH (20:32)
[2020-10-29] MEDS: ENOXAPARIN 40 MG/0.4 ML SYRINGE. SQ SCH (20:33)
[2020-10-29] MEDS: INSULIN GLARGINE SYRINGE. SQ SCH (20:36)
[2020-10-30] MEDS: PIPERACILLIN/TAZOBACTAM 3.375 GM in IV NORMAL SALINE 50ML 50 ML IV SCH ×4 (00:05→17:42)
--- NOTE | 2020-10-30 01:13 | PN ---
DATE: 10/29/2020 SUBJECTIVE: The patient is resting, slightly propped up in bed, no apparent distress. He is very lethargic, but arousable, continued to complain of shortness of breath, but denied any chest pain. He apparently was admitted to [facility] with acute gastroenteritis and his creatinine has risen to 2.1 mg, and on the day of discharge is 1.6. His baseline creatinine on 09/17/2020 was 1.2 mg/dL. Apparently, we did scan his bladder yesterday and was found to be retaining urine and has an indwelling Andrew catheter and about 800 mL of urine was drained. PHYSICAL EXAMINATION: GENERAL: When I examined him this morning, he looked pale. No jaundice, cyanosis or thyromegaly. No jugular venous distention. No lower limb edema. VITAL SIGNS: His heart rate was 110, blood pressure was 127/66, temperature was 98.4, respiratory rate 13, and oxygen saturation 100% on 15 liters of oxygen. HEAD, EYES, EARS, NOSE AND THROAT: Normocephalic, atraumatic. NECK: Supple. HEART: Showed normal first and second heart sounds. No gallop or murmur. CHEST: Shows central trachea, equal bilaterally, equally reduced expansion, reduced air entry, vesicular sounds. I really could not appreciate any crepitation or rhonchi. ABDOMEN: Markedly distended, soft, nontender. NEUROLOGIC: He was sleepy, but arousable. All his cranial nerves were intact. He moves extremities without difficulty. He has an indwelling Andrew catheter. INTAKE AND OUTPUT: His intake and output are incompletely recorded. LABORATORY DATA: His labs work this morning showed his white cell count has risen further to 24,600, hemoglobin 11, hematocrit 35, MCV 88 and platelet count 244,000 with a manual differential showed 97% polymorphs, 3% lymphocytes, 1% monocytes. His chemistry showed a serum sodium 136, potassium 6.8, chloride 100, bicarbonate 28, anion gap of 8, BUN 41, creatinine 2.6. Estimated GFR was 31 mL per minute. His glucose , calcium was 8.1. Total bilirubin, AST, ALT, alkaline phosphatase were normal. Total protein 7.3, albumin 3. ASSESSMENT: 1. Acute hypoxic respiratory failure. 2. Right upper lobe lobar pneumonia. 3. Acute kidney injury, likely multifactorial. The patient is on lisinopril, indomethacin and he apparently has urinary retention likely due to enlarged prostate versus neurogenic bladder, given that he is diabetic. 4. Morbid obesity and obstructive sleep apnea. 5. Poorly controlled type 2 diabetes mellitus. 6. Hypertension. PLAN: Continue with IV antibiotic in the form of Zithromax. I did consult Infectious Disease specialist to assist with management, consulted Dr. Calderon and . He has also hyperkalemia, treated with calcium gluconate and sodium bicarbonate. He is scheduled for repeat his lab work sometime this morning. DAYNA/ANTOINETTE DR: Saravanan TID: [id number]
[2020-10-30 03:00] VITALS: BP 136/80
[2020-10-30 05:41] LABS: HEMATOCRIT 32.3 % (39.0-53.0); HEMOGLOBIN 10.5 g/dL (13.0-17.5); RED BLOOD COUNT 3.68 x10^6/uL (4.30-5.70); RED CELL DISTRIBUTION WIDTH 14.3 % (11.5-14.5); WHITE BLOOD COUNT 21.8 x10^3/uL (4.0-11.0)
[2020-10-30 06:03] LABS: ALBUMIN 2.8 g/dL (3.4-5.0); ALBUMIN/GLOBULIN RATIO 0.7 (1.0-1.7); CALCIUM 8.5 mg/dL (8.5-10.1); CREATININE 1.8 mg/dL (0.7-1.3); GFR 48.6; POTASSIUM 5.4 mmol/L (3.5-5.1); TOTAL BILIRUBIN 0.3 mg/dL (0.2-1.0)
--- NOTE | 2020-10-30 06:18 | PDOC ---
PULMONARY PROGRESS NOTES DATE: 10/30/20 TIME: 06:17 Subjective on 02 5lpm sob better has cough used bipap half of the night has hodan couldnt afford cpap Vitals Vital Signs Date Time Temp Pulse Resp B/P (MAP) Pulse Ox O2 Delivery O2 Flow Rate FiO2 10/30/20 03:00 98.4 101 15 136/80 (98) 100 BiPAP/CPAP 98.4 10/29/20 20:47 5.0 ROS: No Nausea, No Chest Pain General: Alert, No acute distress HEENT: Other (at perrl) Lungs: Crackles Cardiovascular: S1, S2 Abdomen: Soft, Non-tender, Other (obese) Neuro Exam: Alert Skin: Warm Labs Laboratory Tests Test 10/28/20 21:22 10/29/20 03:30 10/29/20 07:43 10/29/20 08:50 Glucose (Fingerstick) 218 mg/dL (70-99) 215 mg/dL (70-99) White Blood Count 24.6 x10^3/uL (4.0-11.0) Red Blood Count 3.93 x10^6/uL (4.30-5.70) Hemoglobin 11.1 g/dL (13.0-17.5) Hematocrit 34.7 % (39.0-53.0) Mean Corpuscular Volume 88 fL (79-100) Mean Corpuscular Hemoglobin 28 pg (25-35) Mean Corpuscular Hemoglobin Concent 32 g/dL (31-37) Red Cell Distribution Width 14.6 % (11.5-14.5) Platelet Count 244 x10^3/uL (140-400) Neutrophils (%) (Auto) 97 % (31-73) Lymphocytes (%) (Auto) 3 % (24-48) Monocytes (%) (Auto) 1 % (0-9) Eosinophils (%) (Auto) 0 % (0-3) Basophils (%) (Auto) 0 % (0-3) Neutrophils # (Auto) 23.7 x10^3/uL (1.8-7.7) Lymphocytes # (Auto) 0.7 x10^3/uL (1.0-4.8) Monocytes # (Auto) 0.2 x10^3/uL (0.0-1.1) Eosinophils # (Auto) 0.0 x10^3/uL (0.0-0.7) Basophils # (Auto) 0.0 x10^3/uL (0.0-0.2) Segmented Neutrophils % 99 % (35-66) Lymphocytes % 1 % (24-48) Platelet Estimate Adequate (ADEQUATE) Polychromasia Slight Basophilic Stippling Present Sodium Level 136 mmol/L (136-145) Potassium Level 6.8 mmol/L (3.5-5.1) Chloride Level 100 mmol/L (98-107) Carbon Dioxide Level 28 mmol/L (21-32) Anion Gap 8 (6-14) Blood Urea Nitrogen 41 mg/dL (8-26) Creatinine 2.6 mg/dL (0.7-1.3) Estimated GFR (Cockcroft-Gault) 31.8 BUN/Creatinine Ratio 16 (6-20) Glucose Level 265 mg/dL (70-99) Uric Acid 6.3 mg/dL (3.5-7.2) Calcium Level 8.1 mg/dL (8.5-10.1) Total Bilirubin 0.5 mg/dL (0.2-1.0) Aspartate Amino Transf (AST/SGOT) 21 U/L (15-37) Alanine Aminotransferase (ALT/SGPT) 21 U/L (16-63) Alkaline Phosphatase 105 U/L (46-116) Total Protein 7.3 g/dL (6.4-8.2) Albumin 3.0 g/dL (3.4-5.0) Albumin/Globulin Ratio 0.7 (1.0-1.7) O2 Saturation 96 % (92-99) Arterial Blood pH 7.27 (7.35-7.45) Arterial Blood pCO2 at Patient Temp 61 mmHg (35-46) Arterial Blood pO2 at Patient Temp 91 mmHg (75-108) Arterial Blood HCO3 27 mmol/L (21-28) Arterial Blood Base Excess -1 mmol/L (-3-3) FiO2 12l Test 10/29/20 09:05 10/29/20 12:11 10/29/20 17:10 10/29/20 20:35 Sodium Level 138 mmol/L (136-145) Potassium Level 5.2 mmol/L (3.5-5.1) Chloride Level 99 mmol/L (98-107) Carbon Dioxide Level 31 mmol/L (21-32) Anion Gap 8 (6-14) Blood Urea Nitrogen 49 mg/dL (8-26) Creatinine 2.6 mg/dL (0.7-1.3) Estimated GFR (Cockcroft-Gault) 31.8 Glucose Level 234 mg/dL (70-99) Calcium Level 8.6 mg/dL (8.5-10.1) Glucose (Fingerstick) 247 mg/dL (70-99) 372 mg/dL (70-99) 310 mg/dL (70-99) Test 10/30/20 04:30 10/30/20 04:45 White Blood Count 21.8 x10^3/uL (4.0-11.0) Red Blood Count 3.68 x10^6/uL (4.30-5.70) Hemoglobin 10.5 g/dL (13.0-17.5) Hematocrit 32.3 % (39.0-53.0) Mean Corpuscular Volume 88 fL (79-100) Mean Corpuscular Hemoglobin 28 pg (25-35) Mean Corpuscular Hemoglobin Concent 32 g/dL (31-37) Red Cell Distribution Width 14.3 % (11.5-14.5) Platelet Count 230 x10^3/uL (140-400) Sodium Level 142 mmol/L (136-145) Potassium Level 5.4 mmol/L (3.5-5.1) Chloride Level 105 mmol/L (98-107) Carbon Dioxide Level 33 mmol/L (21-32) Anion Gap 4 (6-14) Blood Urea Nitrogen 46 mg/dL (8-26) Creatinine 1.8 mg/dL (0.7-1.3) Estimated GFR (Cockcroft-Gault) 48.6 BUN/Creatinine Ratio 26 (6-20) Glucose Level 175 mg/dL (70-99) Calcium Level 8.5 mg/dL (8.5-10.1) Total Bilirubin 0.3 mg/dL (0.2-1.0) Aspartate Amino Transf (AST/SGOT) 15 U/L (15-37) Alanine Aminotransferase (ALT/SGPT) 17 U/L (16-63) Alkaline Phosphatase 93 U/L (46-116) Total Protein 7.0 g/dL (6.4-8.2) Albumin 2.8 g/dL (3.4-5.0) Albumin/Globulin Ratio 0.7 (1.0-1.7) Laboratory Tests Test 10/29/20 07:43 10/29/20 08:50 10/29/20 09:05 10/29/20 12:11 Glucose (Fingerstick) 215 mg/dL (70-99) 247 mg/dL (70-99) O2 Saturation 96 % (92-99) Arterial Blood pH 7.27 (7.35-7.45) Arterial Blood pCO2 at Patient Temp 61 mmHg (35-46) Arterial Blood pO2 at Patient Temp 91 mmHg (75-108) Arterial Blood HCO3 27 mmol/L (21-28) Arterial Blood Base Excess -1 mmol/L (-3-3) FiO2 12l Sodium Level 138 mmol/L (136-145) Potassium Level 5.2 mmol/L (3.5-5.1) Chloride Level 99 mmol/L (98-107) Carbon Dioxide Level 31 mmol/L (21-32) Anion Gap 8 (6-14) Blood Urea Nitrogen 49 mg/dL (8-26) Creatinine 2.6 mg/dL (0.7-1.3) Estimated GFR (Cockcroft-Gault) 31.8 Glucose Level 234 mg/dL (70-99) Calcium Level 8.6 mg/dL (8.5-10.1) Test 10/29/20 17:10 10/29/20 20:35 10/30/20 04:30 10/30/20 04:45 Glucose (Fingerstick) 372 mg/dL (70-99) 310 mg/dL (70-99) White Blood Count 21.8 x10^3/uL (4.0-11.0) Red Blood Count 3.68 x10^6/uL (4.30-5.70) Hemoglobin 10.5 g/dL (13.0-17.5) Hematocrit 32.3 % (39.0-53.0) Mean Corpuscular Volume 88 fL (79-100) Mean Corpuscular Hemoglobin 28 pg (25-35) Mean Corpuscular Hemoglobin Concent 32 g/dL (31-37) Red Cell Distribution Width 14.3 % (11.5-14.5) Platelet Count 230 x10^3/uL (140-400) Sodium Level 142 mmol/L (136-145) Potassium Level 5.4 mmol/L (3.5-5.1) Chloride Level 105 mmol/L (98-107) Carbon Dioxide Level 33 mmol/L (21-32) Anion Gap 4 (6-14) Blood Urea Nitrogen 46 mg/dL (8-26) Creatinine 1.8 mg/dL (0.7-1.3) Estimated GFR (Cockcroft-Gault) 48.6 BUN/Creatinine Ratio 26 (6-20) Glucose Level 175 mg/dL (70-99) Calcium Level 8.5 mg/dL (8.5-10.1) Total Bilirubin 0.3 mg/dL (0.2-1.0) Aspartate Amino Transf (AST/SGOT) 15 U/L (15-37) Alanine Aminotransferase (ALT/SGPT) 17 U/L (16-63) Alkaline Phosphatase 93 U/L (46-116) Total Protein 7.0 g/dL (6.4-8.2) Albumin 2.8 g/dL (3.4-5.0) Albumin/Globulin Ratio 0.7 (1.0-1.7) Medications Active Scripts Medications Dose Route/Sig Max Daily Dose Days Date Category Dose Instructions Cyclobenzaprine Hcl 10 Mg Tablet 1 Tab PO TID 10/28/20 Reported Cetirizine Hcl 10 Mg Tablet 1 Tab PO DAILY 10/28/20 Reported Trazodone Hcl 100 Mg Tablet 1 Tab PO QHS 10/28/20 Reported Omeprazole 40 Mg Capsule.dr 1 Cap PO DAILY 10/28/20 Reported Lisinopril 20 Mg Tablet 1 Tab PO DAILY 10/28/20 Reported Lantus Solostar (Insulin Glargine,Hum.rec.anlog) 100 Unit/1 Ml Insuln.pen 50 Unit SQ QHS 10/28/20 Reported Indomethacin 25 Mg Capsule Unknown Dose PO TID 10 10/28/20 Reported with food Gabapentin (Gabapentin) 300 Mg Capsule 300 Mg PO TID 10/28/20 Reported Atorvastatin Calcium 20 Mg Tablet 1 Tab PO DAILY 10/28/20 Reported Amlodipine Besylate 10 Mg Tablet 10 Mg PO DAILY 10/28/20 Reported Allopurinol 300 Mg Tablet 1 Tab PO DAILY 10/28/20 Reported Hydrocodone-Apap 5-325 (Hydrocodone Bit/Acetaminophen) 1 Each Tablet 2 Tab PO BID PRN 04/07/15 Reported Lorazepam 0.5 Mg Tablet 1 Tab PO BID 04/07/15 Reported Zoloft (Sertraline Hcl) 50 Mg Tablet 1 Tab PO DAILY 04/07/15 Reported Lantus Solostar (Insulin Glargine,Hum.rec.anlog) 100 Unit/1 Ml Insuln.pen 50 Unit SQ QHS 04/07/15 Reported Impression . IMPRESSION: 1. Acute hypoxemic hypercapnic respiratory failure. 2. Abnormal chest x-ray, right upper lobe infiltrate compatible with gram-negative, possibly gram-positive pneumonia. 3. Morbid obesity. 4. Obstructive sleep apnea. 5. Diabetes mellitus. 6. Acute on chronic kidney disease. 7. History of alcoholism. 8. Leukocytosis. 9. Hyperkalemia. 10. Protein malnutrition present upon admission. 11. Status post COVID-19 vaccination. 12. Obstructive sleep apnea, possibly hypoventilation syndrome. Plan . PLAN: 1. 02 titration to keep sat 92% 2. Antibiotics per id avinash mathews 3. Transfer out of the intensive care unit. 4. Monitor in's and out's. 5. Monitor BUN and creatinine. 6. 6 min walk at dc 7. The patient is strongly encouraged to initiate use of CPAP. 8. hodan the importance of tx discussed use bipap qhs 9. need split night sleep study as out pt 10. lose wt discussed w rn pt NATHALIE CHAN MD Oct 30, 2020 06:18
--- NOTE | 2020-10-30 06:38 | CONS ---
DATE OF CONSULTATION: 10/29/2020 ATTENDING PHYSICIAN: Dr. Collins. REASON FOR CONSULTATION: The patient is seen in pulmonary consultation at the request of Dr. Collins for acute hypoxemic respiratory failure and abnormal CT chest. HISTORY OF PRESENT ILLNESS: The patient is a 49-year-old that presented with a 2-3 day history of increasing shortness of breath, cough, mostly nonproductive. He quit tobacco approximately 5 years ago. He presented to the emergency room, was evaluated and had a chest x-ray which revealed right upper lobe infiltrate. He had a CT chest confirming consolidation of the right upper lobe along with basal infiltrates. I was asked to see him in consultation. The patient normally does not wear oxygen at home. He is currently on 5 liters of oxygen supplementation. Since admission, he has been afebrile. He reports no recent upper respiratory infections. He does not carry a diagnosis of COPD. He denies any COVID-19 exposures. He has been vaccinated for COVID. PAST MEDICAL HISTORY: Otherwise remarkable for type 2 diabetes, morbid obesity, obstructive sleep apnea, intolerant to CPAP; alcoholism, he is currently down to drinking some beer 2-3 at the time. He does have alcoholic liver disease and previous acute renal failure related to gastroenteritis. He also has a history of chronic kidney disease. PAST SURGICAL HISTORY: No recent major surgeries. ALLERGIES: No known drug allergies. FAMILY HISTORY: He has some siblings who are apparently in good health. Father at the age of 77 from complications of [employer] [place] and COPD. Mother alive at the age of 78 with diabetes and hypertension. SOCIAL HISTORY: He is single, never . Quit tobacco approximately 5 years ago. Continues to drinks on and off. REVIEW OF SYSTEMS: As indicated in the history of present illness, otherwise other systems were reviewed and negative. HEENT: No headaches, diplopia or blurred vision. CARDIOVASCULAR: No chest pain, no pressure. GASTROINTESTINAL: No nausea, vomiting, diarrhea. GENITOURINARY: No dysuria or frequency. MUSCULOSKELETAL: No localized muscle aches or joint pain. SKIN: No new skin rashes. NEUROLOGIC: No headaches, diplopia or blurred vision. MEDICATIONS: His medication list was reviewed, please see the MAR. He is currently being treated with Zithromax and ceftriaxone along with his home medications and bronchodilators. PHYSICAL EXAMINATION: GENERAL: Morbid obese individual in no respiratory distress. VITAL SIGNS: Stable. Initially, he required a nonrebreather. In the Intensive Care Unit, he is currently down to 5 liters of oxygen. He does not appear to be in any respiratory distress. HEENT: Eyes: The sclerae were nonicteric. NECK: Jugular venous distention could not be assessed secondary to body habitus. CHEST: Full expansion. LUNGS: Poor airflow. No wheezes. CARDIOVASCULAR: Regular rate and rhythm with S1, S2. No S3. ABDOMEN: Obese. EXTREMITIES: No clubbing or cyanosis. Minimal edema. NEUROLOGIC: The patient was awake, alert, following commands. A detailed neuro exam was not performed. LABORATORY DATA: White count was elevated at 24,000, hemoglobin and hematocrit were noted. Arterial blood gas, pH of 7.27, PaCO2 of 61 and pO2 of 91. Electrolytes were noted. Potassium was initially elevated. BUN was elevated, creatinine was elevated. Albumin was low. CT as indicated above. IMPRESSION: 1. Acute hypoxemic hypercapnic respiratory failure. 2. Abnormal chest x-ray, right upper lobe infiltrate compatible with gram-negative, possibly gram-positive pneumonia. 3. Morbid obesity. 4. Obstructive sleep apnea. 5. Diabetes mellitus. 6. Acute on chronic kidney disease. 7. History of alcoholism. 8. Leukocytosis. 9. Hyperkalemia. 10. Protein malnutrition present upon admission. 11. Status post COVID-19 vaccination. 12. Obstructive sleep apnea, possibly hypoventilation syndrome. PLAN: 1. We will continue current support with oxygen supplementation. 2. Antibiotics. 3. Transfer out of the intensive care unit. 4. Monitor in's and out's. 5. Monitor BUN and creatinine. 6. We will probably require oxygen upon discharge. 7. The patient is strongly encouraged to initiate use of CPAP. 8. P.r.n. BiPAP and at bedtime BiPAP. I do appreciate the privilege in sharing in the patient's care. RICHY/ANTOINETTE DR: Kristie TID: [id number]
[2020-10-30 07:00] VITALS: BP 136/77
[2020-10-30] MEDS ORDERED: DEXTROSE 50% 25 GM / 50ML DISP.SYRIN. IV PRN (07:30)
--- NOTE | 2020-10-30 08:13 | PDOC ---
Infectious Disease Note Subjective: Subjective Patient feels better Down to 2 L O2 by nasal cannula Has occasional loose bowel movement No fever, headache, sore throat, nausea, vomiting, abdominal pain Vital Signs: Vital Signs Vital Signs Date Time Temp Pulse Resp B/P (MAP) Pulse Ox O2 Delivery O2 Flow Rate FiO2 10/30/20 03:00 98.4 101 15 136/80 (98) 100 BiPAP/CPAP 98.4 10/29/20 20:47 5.0 Physical Exam: PHYSICAL EXAM GENERAL: Morbidly obese, alert, awake, oriented x 3 male lying in bed on nasal O2. HEENT: Normocephalic, atraumatic. No thrush, no oropharyngeal exudate. NECK: Supple. Unable to examine the neck due to short, stocky neck. LUNGS: Decreased breath sounds on the right upper lobe. No wheezing. HEART: S1, S2, tachycardia. No murmurs appreciated. ABDOMEN: Obese, soft, nontender, nondistended. Bowel sounds present. EXTREMITIES: No edema, no cyanosis except for trace right upper extremity edema. NEUROLOGIC: Alert and oriented x 3, grossly nonfocal. PSYCHIATRIC: Calm and cooperative. DERM: Warm, dry, no generalized rash. Medications: Inpatient Meds: Medications reviewed. Labs: Lab Laboratory Tests Test 10/29/20 08:50 10/29/20 09:05 10/29/20 12:11 10/29/20 17:10 O2 Saturation 96 % (92-99) Arterial Blood pH 7.27 (7.35-7.45) Arterial Blood pCO2 at Patient Temp 61 mmHg (35-46) Arterial Blood pO2 at Patient Temp 91 mmHg (75-108) Arterial Blood HCO3 27 mmol/L (21-28) Arterial Blood Base Excess -1 mmol/L (-3-3) FiO2 12l Sodium Level 138 mmol/L (136-145) Potassium Level 5.2 mmol/L (3.5-5.1) Chloride Level 99 mmol/L (98-107) Carbon Dioxide Level 31 mmol/L (21-32) Anion Gap 8 (6-14) Blood Urea Nitrogen 49 mg/dL (8-26) Creatinine 2.6 mg/dL (0.7-1.3) Estimated GFR (Cockcroft-Gault) 31.8 Glucose Level 234 mg/dL (70-99) Calcium Level 8.6 mg/dL (8.5-10.1) Glucose (Fingerstick) 247 mg/dL (70-99) 372 mg/dL (70-99) Test 10/29/20 20:35 10/30/20 04:30 10/30/20 04:45 Glucose (Fingerstick) 310 mg/dL (70-99) White Blood Count 21.8 x10^3/uL (4.0-11.0) Red Blood Count 3.68 x10^6/uL (4.30-5.70) Hemoglobin 10.5 g/dL (13.0-17.5) Hematocrit 32.3 % (39.0-53.0) Mean Corpuscular Volume 88 fL (79-100) Mean Corpuscular Hemoglobin 28 pg (25-35) Mean Corpuscular Hemoglobin Concent 32 g/dL (31-37) Red Cell Distribution Width 14.3 % (11.5-14.5) Platelet Count 230 x10^3/uL (140-400) Sodium Level 142 mmol/L (136-145) Potassium Level 5.4 mmol/L (3.5-5.1) Chloride Level 105 mmol/L (98-107) Carbon Dioxide Level 33 mmol/L (21-32) Anion Gap 4 (6-14) Blood Urea Nitrogen 46 mg/dL (8-26) Creatinine 1.8 mg/dL (0.7-1.3) Estimated GFR (Cockcroft-Gault) 48.6 BUN/Creatinine Ratio 26 (6-20) Glucose Level 175 mg/dL (70-99) Calcium Level 8.5 mg/dL (8.5-10.1) Total Bilirubin 0.3 mg/dL (0.2-1.0) Aspartate Amino Transf (AST/SGOT) 15 U/L (15-37) Alanine Aminotransferase (ALT/SGPT) 17 U/L (16-63) Alkaline Phosphatase 93 U/L (46-116) Total Protein 7.0 g/dL (6.4-8.2) Albumin 2.8 g/dL (3.4-5.0) Albumin/Globulin Ratio 0.7 (1.0-1.7) Objective: Assessment: 1. Acute hypoxic respiratory failure. 2. Right upper lobe pneumonia. CT chest noted 3. Leukocytosis, also received prednisone at outside hospital. 4. Acute kidney injury with hyperkalemia. 5. Diabetes mellitus, poorly controlled. 6. History of fall. 7. History of asthma. 8. History of recent gastroenteritis. Plan: Plan of Care Continue Zosyn and azithromycin Follow up labs and cultures. Continue supportive care. Maintain aspiration precaution. JESSIE LIU MD Oct 30, 2020 08:13
[2020-10-30] MEDS: ALBUTEROL SULFATE 2.5 MG/3 ML NEBU. NEB SCH ×4 (08:21→20:24)
[2020-10-30] MEDS: CETIRIZINE HCL 10 MG TABLET. PO SCH (08:34)
[2020-10-30] MEDS: LORazepam 0.5 MG TABLET PO SCH ×2 (08:34→21:00)
[2020-10-30] MEDS: CYCLOBENZAPRINE 10 MG TABLET. PO SCH ×3 (08:34→21:00)
[2020-10-30] MEDS: LACTOBACILLUS RHAMNOSUS GG 1 CAPSULE. PO SCH ×2 (08:34→21:00)
[2020-10-30] MEDS: ENOXAPARIN 40 MG/0.4 ML SYRINGE. SQ SCH ×2 (08:35→21:00)
[2020-10-30] MEDS: SERTRALINE 50 MG TABLET. PO SCH (08:35)
[2020-10-30] MEDS: GABAPENTIN 300 MG CAPSULE. PO SCH ×3 (08:35→21:00)
[2020-10-30] MEDS: PANTOPRAZOLE 40 MG TABLET.DR. PO SCH (08:35)
[2020-10-30] MEDS: INSULIN LISPRO 300 UNITS/3 ML VIAL. SQ SCH ×3 (08:40→17:36)
--- NOTE | 2020-10-30 09:09 | PN ---
DATE: 10/30/2020 SUBJECTIVE: The patient is resting, slightly propped up in bed, in no apparent respiratory distress. He is more awake, alert, responding appropriately. On questioning him, he denied any complaint. Nursing staff did not voice any concerns, stated that he has an uneventful night. OBJECTIVE: GENERAL: When I examined him, he looked well and was clearly in no apparent respiratory distress. He was pale, not jaundice, cyanosis or thyromegaly. No jugular venous distention. No limb edema. VITAL SIGNS: His heart rate was 101, blood pressure is 136/80, temperature was 98.4, respiratory rate was 15 and oxygen saturation was 93% on 2 liters of oxygen by nasal cannula. HEAD, EYES, EARS, NOSE AND THROAT: Normocephalic, atraumatic. NECK: Supple. HEART: Normal first and second heart sounds, no gallop, rub or murmur. CHEST: Shows central trachea, equal bilateral chest expansion, air entry, vesicular breath sounds. I could not really appreciate any crepitation or rhonchi. ABDOMEN: Distended, soft, nontender. NEUROLOGIC: He is definitely more awake, alert, responding appropriately. All cranial nerves intact. He moves extremities without difficulty. The patient continued to be mostly bedbound. His intake over the last 24 hours was 860, output was 1000. LABORATORY AND DIAGNOSTIC DATA: As of this morning, his white cell count came down to 21.8, hemoglobin 10.5, hematocrit 32, MCV 88 and platelet count 230,000. His chemistry showed a serum sodium 142, potassium 5.4, chloride 105, bicarbonate 33, anion gap of 4, BUN 46, creatinine 1.8, estimated GFR was 48, blood glucose 175, calcium was 8.5. Total bilirubin, AST, ALT, alkaline phosphatase were normal. Total protein 7, albumin was 2.8. His CT scan of the chest showed no pathologic lymphadenopathy, right upper lobe consolidation with an air bronchogram, right middle lobe ground glass opacities, bilateral lower lobe linear opacities most likely atelectasis, no pleural effusion, no pneumothorax, there are left upper lobe ground glass opacities. The imaged upper abdomen is unremarkable. Bones: No pathological osseous lesion. The impression, the patient has right upper lobe consolidation with multifocal ground glass opacities bilaterally concerning for pneumonia. ASSESSMENT: 1. Community-acquired pneumonia. 2. Acute hypoxic respiratory failure. 3. Acute kidney injury, likely multifactorial, the patient's baseline creatinine was 1.2 on 09/17/2020, he is on lisinopril and indomethacin and he apparently has had urinary retention, likely due to enlarged prostate versus neurogenic bladder given that he is diabetic. 4. Morbid obesity and obstructive sleep apnea. 5. Poorly controlled type 2 diabetes mellitus. 6. Hypertension. PLAN: To continue with the IV antibiotic, he is now on Zosyn and Zithromax. Continue with IV fluid. I discontinued his lisinopril and indomethacin. Continue to monitor his blood sugar and adjust the insulin as needed. YAN/JOSE LUIS DR: Saravanan TID: [id number]
[2020-10-30] MEDS: IV NORMAL SALINE 1000ML BAG 1,000 ML IV SCH ×2 (10:15→21:00)
[2020-10-30 11:00] VITALS: BP 147/92
--- NOTE | 2020-10-30 11:25 | PDOC ---
PROGRESS NOTES Date of Service DATE: 10/30/20 TIME: 11:23 Subjective Subjective SEEN IN FOLLOW UP OF ARF Objective Objective Vital Signs Date Time Temp Pulse Resp B/P (MAP) Pulse Ox O2 Delivery O2 Flow Rate FiO2 10/30/20 08:35 136/77 10/30/20 08:23 97 Nasal Cannula 3.0 10/30/20 07:00 98.3 104 17 98.3 Intake and Output 10/30/20 07:00 Intake Total 2720 ml Output Total 3320 ml Balance -600 ml Intake Oral 1220 ml IV Total 1500 ml Output Urine Total 3320 ml # Bowel Movements 3 Physical Exam Abdomen: Normal bowel sounds, Soft, No tenderness, No hepatosplenomegaly, No masses Extremities: No clubbing, No cyanosis, No edema, Normal pulses, No tenderness/swelling General: Alert, Oriented X3, Cooperative, No acute distress Lungs: Clear to auscultation, Normal air movement Psych/Mental Status: Mental status NL, Mood NL Diagnosis RENAL FAILURE: Acute, Other (URINARY RETENTION) Plan Plan of Care RENAL FUNCTION IS BETTER. CONT ARIAS AND IVF Comment Review of Relevant I have reviewed the following items viry (where applicable) has been applied. Labs Laboratory Tests Test 10/28/20 21:22 10/29/20 03:30 10/29/20 07:43 10/29/20 08:50 Glucose (Fingerstick) 218 mg/dL (70-99) 215 mg/dL (70-99) White Blood Count 24.6 x10^3/uL (4.0-11.0) Red Blood Count 3.93 x10^6/uL (4.30-5.70) Hemoglobin 11.1 g/dL (13.0-17.5) Hematocrit 34.7 % (39.0-53.0) Mean Corpuscular Volume 88 fL (79-100) Mean Corpuscular Hemoglobin 28 pg (25-35) Mean Corpuscular Hemoglobin Concent 32 g/dL (31-37) Red Cell Distribution Width 14.6 % (11.5-14.5) Platelet Count 244 x10^3/uL (140-400) Neutrophils (%) (Auto) 97 % (31-73) Lymphocytes (%) (Auto) 3 % (24-48) Monocytes (%) (Auto) 1 % (0-9) Eosinophils (%) (Auto) 0 % (0-3) Basophils (%) (Auto) 0 % (0-3) Neutrophils # (Auto) 23.7 x10^3/uL (1.8-7.7) Lymphocytes # (Auto) 0.7 x10^3/uL (1.0-4.8) Monocytes # (Auto) 0.2 x10^3/uL (0.0-1.1) Eosinophils # (Auto) 0.0 x10^3/uL (0.0-0.7) Basophils # (Auto) 0.0 x10^3/uL (0.0-0.2) Segmented Neutrophils % 99 % (35-66) Lymphocytes % 1 % (24-48) Platelet Estimate Adequate (ADEQUATE) Polychromasia Slight Basophilic Stippling Present Sodium Level 136 mmol/L (136-145) Potassium Level 6.8 mmol/L (3.5-5.1) Chloride Level 100 mmol/L (98-107) Carbon Dioxide Level 28 mmol/L (21-32) Anion Gap 8 (6-14) Blood Urea Nitrogen 41 mg/dL (8-26) Creatinine 2.6 mg/dL (0.7-1.3) Estimated GFR (Cockcroft-Gault) 31.8 BUN/Creatinine Ratio 16 (6-20) Glucose Level 265 mg/dL (70-99) Uric Acid 6.3 mg/dL (3.5-7.2) Calcium Level 8.1 mg/dL (8.5-10.1) Total Bilirubin 0.5 mg/dL (0.2-1.0) Aspartate Amino Transf (AST/SGOT) 21 U/L (15-37) Alanine Aminotransferase (ALT/SGPT) 21 U/L (16-63) Alkaline Phosphatase 105 U/L (46-116) Total Protein 7.3 g/dL (6.4-8.2) Albumin 3.0 g/dL (3.4-5.0) Albumin/Globulin Ratio 0.7 (1.0-1.7) O2 Saturation 96 % (92-99) Arterial Blood pH 7.27 (7.35-7.45) Arterial Blood pCO2 at Patient Temp 61 mmHg (35-46) Arterial Blood pO2 at Patient Temp 91 mmHg (75-108) Arterial Blood HCO3 27 mmol/L (21-28) Arterial Blood Base Excess -1 mmol/L (-3-3) FiO2 12l Test 10/29/20 09:05 10/29/20 12:11 10/29/20 17:10 10/29/20 20:35 Sodium Level 138 mmol/L (136-145) Potassium Level 5.2 mmol/L (3.5-5.1) Chloride Level 99 mmol/L (98-107) Carbon Dioxide Level 31 mmol/L (21-32) Anion Gap 8 (6-14) Blood Urea Nitrogen 49 mg/dL (8-26) Creatinine 2.6 mg/dL (0.7-1.3) Estimated GFR (Cockcroft-Gault) 31.8 Glucose Level 234 mg/dL (70-99) Calcium Level 8.6 mg/dL (8.5-10.1) Glucose (Fingerstick) 247 mg/dL (70-99) 372 mg/dL (70-99) 310 mg/dL (70-99) Test 10/30/20 04:30 10/30/20 04:45 10/30/20 08:32 White Blood Count 21.8 x10^3/uL (4.0-11.0) Red Blood Count 3.68 x10^6/uL (4.30-5.70) Hemoglobin 10.5 g/dL (13.0-17.5) Hematocrit 32.3 % (39.0-53.0) Mean Corpuscular Volume 88 fL (79-100) Mean Corpuscular Hemoglobin 28 pg (25-35) Mean Corpuscular Hemoglobin Concent 32 g/dL (31-37) Red Cell Distribution Width 14.3 % (11.5-14.5) Platelet Count 230 x10^3/uL (140-400) Sodium Level 142 mmol/L (136-145) Potassium Level 5.4 mmol/L (3.5-5.1) Chloride Level 105 mmol/L (98-107) Carbon Dioxide Level 33 mmol/L (21-32) Anion Gap 4 (6-14) Blood Urea Nitrogen 46 mg/dL (8-26) Creatinine 1.8 mg/dL (0.7-1.3) Estimated GFR (Cockcroft-Gault) 48.6 BUN/Creatinine Ratio 26 (6-20) Glucose Level 175 mg/dL (70-99) Calcium Level 8.5 mg/dL (8.5-10.1) Total Bilirubin 0.3 mg/dL (0.2-1.0) Aspartate Amino Transf (AST/SGOT) 15 U/L (15-37) Alanine Aminotransferase (ALT/SGPT) 17 U/L (16-63) Alkaline Phosphatase 93 U/L (46-116) Total Protein 7.0 g/dL (6.4-8.2) Albumin 2.8 g/dL (3.4-5.0) Albumin/Globulin Ratio 0.7 (1.0-1.7) Glucose (Fingerstick) 164 mg/dL (70-99) Laboratory Tests Test 10/29/20 12:11 10/29/20 17:10 10/29/20 20:35 10/30/20 04:30 Glucose (Fingerstick) 247 mg/dL (70-99) 372 mg/dL (70-99) 310 mg/dL (70-99) White Blood Count 21.8 x10^3/uL (4.0-11.0) Red Blood Count 3.68 x10^6/uL (4.30-5.70) Hemoglobin 10.5 g/dL (13.0-17.5) Hematocrit 32.3 % (39.0-53.0) Mean Corpuscular Volume 88 fL (79-100) Mean Corpuscular Hemoglobin 28 pg (25-35) Mean Corpuscular Hemoglobin Concent 32 g/dL (31-37) Red Cell Distribution Width 14.3 % (11.5-14.5) Platelet Count 230 x10^3/uL (140-400) Test 10/30/20 04:45 10/30/20 08:32 Sodium Level 142 mmol/L (136-145) Potassium Level 5.4 mmol/L (3.5-5.1) Chloride Level 105 mmol/L (98-107) Carbon Dioxide Level 33 mmol/L (21-32) Anion Gap 4 (6-14) Blood Urea Nitrogen 46 mg/dL (8-26) Creatinine 1.8 mg/dL (0.7-1.3) Estimated GFR (Cockcroft-Gault) 48.6 BUN/Creatinine Ratio 26 (6-20) Glucose Level 175 mg/dL (70-99) Calcium Level 8.5 mg/dL (8.5-10.1) Total Bilirubin 0.3 mg/dL (0.2-1.0) Aspartate Amino Transf (AST/SGOT) 15 U/L (15-37) Alanine Aminotransferase (ALT/SGPT) 17 U/L (16-63) Alkaline Phosphatase 93 U/L (46-116) Total Protein 7.0 g/dL (6.4-8.2) Albumin 2.8 g/dL (3.4-5.0) Albumin/Globulin Ratio 0.7 (1.0-1.7) Glucose (Fingerstick) 164 mg/dL (70-99) Microbiology 10/29/20 Blood Culture - Preliminary, Resulted NO GROWTH AFTER 1 DAY Medications Current Medications Ceftriaxone Sodium (Rocephin) 1 gm Q24H IVP ; Start 10/29/20 at 13:00; Stop 10/29/20 at 09:09; Status DC Azithromycin 250 mg/Sodium Chloride 250 ml @ 250 mls/hr Q24H IV Last administered on 10/29/20at 12:42; Start 10/29/20 at 13:00 Amlodipine Besylate (Norvasc) 10 mg DAILY PO Last administered on 10/30/20 08:35; Start 10/29/20 at 09:00 Atorvastatin Calcium (Lipitor) 20 mg QHS PO Last administered on 10/29/20at 20:32; Start 10/28/20 at 21:00 Cetirizine HCl (ZyrTEC) 10 mg DAILY PO Last administered on 10/30/20 08:34; Start 10/29/20 at 09:00 Cyclobenzaprine HCl (Flexeril) 10 mg TID PO Last administered on 10/30/20 08:34; Start 10/28/20 at 21:00 Gabapentin (Neurontin) 300 mg TID PO Last administered on 10/30/20 08:35; Start 10/28/20 at 21:00 Acetaminophen/ Hydrocodone Bitart (Lortab 5/325) 2 tab PRN BID PRN PO PAIN Last administered on 10/29/20 20:32; Start 10/28/20 at 18:30 Indomethacin (Indocin) 25 mg TID PO Last administered on 6/3/21at 21:17; Start 10/28/20 at 21:00; Stop 10/29/20 at 08:12; Status DC Lisinopril (Prinivil) 20 mg DAILY PO ; Start 10/29/20 at 09:00; Stop 10/29/20 at 08:12; Status DC Lorazepam (Ativan) 0.5 mg BID PO Last administered on 10/30/20at 08:34; Start 10/28/20 at 21:00 Sertraline HCl (Zoloft) 50 mg DAILY PO Last administered on 10/30/20at 08:35; Start 10/29/20 at 09:00 Trazodone HCl (Desyrel) 100 mg QHS PO Last administered on 10/29/20at 20:32; Start 10/28/20 at 21:00 Insulin Glargine (Lantus Syringe) 50 unit QHS SQ Last administered on 10/29/20at 20:36; Start 10/28/20 at 21:00 Non-Formulary Medication (Insulin Glargine,Hum.rec.anlog (Lantus Solostar)) 50 unit QHS SQ ; Start 10/28/20 at 21:00; Status UNV Pantoprazole Sodium (Protonix) 40 mg DAILYAC PO Last administered on 10/30/20at 08:35; Start 10/29/20 at 07:30 Albuterol Sulfate (Ventolin Neb Soln) 2.5 mg RTQID NEB Last administered on 10/30/20at 08:21; Start 10/28/20 at 20:00 Calcium Gluconate (Calcium Gluconate) 1,000 mg 1X ONCE IVP Last administered on 10/29/20at 06:28; Start 10/29/20 at 06:30; Stop 10/29/20 at 06:31; Status DC Sodium Bicarbonate (Sodium Bicarb Adult 8.4% Syr) 50 meq 1X ONCE IV Last administered on 10/29/20at 06:37; Start 10/29/20 at 07:00; Stop 10/29/20 at 07:01; Status DC Dextrose (Dextrose 50%-Water Syringe) 25 gm 1X ONCE IV Last administered on 10/29/20at 06:37; Start 10/29/20 at 07:00; Stop 10/29/20 at 07:01; Status DC Insulin Human Regular (HumuLIN R VIAL) 10 unit 1X ONCE IV Last administered on 10/29/20at 06:38; Start 10/29/20 at 07:00; Stop 10/29/20 at 07:01; Status DC Sodium Chloride 1,000 ml @ 100 mls/hr Q10H IV Last administered on 10/30/20at 10:15; Start 10/29/20 at 08:45 Insulin Human Lispro (HumaLOG) 0-7 UNITS TIDWMEALS SQ Last administered on 10/29/20at 17:12; Start 10/29/20 at 12:00; Stop 10/30/20 at 07:29; Status DC Dextrose (Dextrose 50%-Water Syringe) 12.5 gm PRN Q15MIN PRN IV SEE COMMENTS; Start 10/29/20 at 09:00 Dextrose (Iv Dextrose 5%) 250 ml PRN Q15MIN PRN IV SEE COMMENTS; Start 10/29/20 at 09:00; Status UNV Piperacillin Sod/ Tazobactam Sod 3.375 gm/Sodium Chloride 50 ml @ 100 mls/hr Q6HRS IV Last administered on 10/30/20at 05:38; Start 10/29/20 at 10:00 Lactobacillus Rhamnosus (Culturelle) 1 cap BID PO Last administered on 10/30/20at 08:34; Start 10/29/20 at 21:00 Enoxaparin Sodium (Lovenox 40mg Syringe) 40 mg Q12HR SQ Last administered on 10/30/20at 08:35; Start 10/29/20 at 21:00 Insulin Human Lispro (HumaLOG) 0-9 UNITS TIDWMEALS SQ Last administered on 10/30/20at 08:40; Start 10/30/20 at 08:00 Dextrose (Dextrose 50%-Water Syringe) 12.5 gm PRN Q15MIN PRN IV SEE COMMENTS; Start 10/30/20 at 07:30; Status UNV Active Scripts Active Reported Cyclobenzaprine Hcl 10 Mg Tablet 1 Tab PO TID Cetirizine Hcl 10 Mg Tablet 1 Tab PO DAILY Trazodone Hcl 100 Mg Tablet 1 Tab PO QHS Omeprazole 40 Mg Capsule.dr 1 Cap PO DAILY Lisinopril 20 Mg Tablet 1 Tab PO DAILY Lantus Solostar (Insulin Glargine,Hum.rec.anlog) 100 Unit/1 Ml Insuln.pen 50 Unit SQ QHS Indomethacin 25 Mg Capsule Unknown Dose PO TID 10 Days with food Gabapentin (Gabapentin) 300 Mg Capsule 300 Mg PO TID Atorvastatin Calcium 20 Mg Tablet 1 Tab PO DAILY Amlodipine Besylate 10 Mg Tablet 10 Mg PO DAILY Allopurinol 300 Mg Tablet 1 Tab PO DAILY Hydrocodone-Apap 5-325 (Hydrocodone Bit/Acetaminophen) 1 Each Tablet 2 Tab PO BID PRN Lorazepam 0.5 Mg Tablet 1 Tab PO BID Zoloft (Sertraline Hcl) 50 Mg Tablet 1 Tab PO DAILY Lantus Solostar (Insulin Glargine,Hum.rec.anlog) 100 Unit/1 Ml Insuln.pen 50 Unit SQ QHS Vitals/I & O Vital Sign - Last 24 Hours 10/29/20 10/29/20 10/29/20 10/29/20 12:00 12:00 12:04 12:22 Temp 98.6 98.6 Pulse 97 101 Resp 15 B/P (MAP) 132/75 (94) 132/75 Pulse Ox 100 98 O2 Delivery Bi-pap BiPAP/CPAP BiPAP/CPAP 10/29/20 10/29/20 10/29/20 10/29/20 13:00 14:00 15:00 15:20 Temp 98.7 98.7 Pulse 105 107 118 Resp 14 15 14 B/P (MAP) 134/78 (96) 107/64 (78) 150/84 (106) Pulse Ox 99 98 97 99 O2 Delivery Nasal Cannula Nasal Cannula Nasal Cannula Nasal Cannula O2 Flow Rate 5.0 5.0 5.0 5.0 10/29/20 10/29/20 10/29/20 10/29/20 19:00 20:00 20:32 20:47 Temp 98.6 98.6 Pulse 117 Resp 32 19 B/P (MAP) 117/63 (81) Pulse Ox 99 99 99 O2 Delivery Nasal Cannula Nasal Cannula Nasal Cannula Nasal Cannula O2 Flow Rate 5.0 5.0 5.0 5.0 10/29/20 10/29/20 10/29/20 10/30/20 20:56 21:02 23:24 00:23 Pulse 106 Resp 16 14 B/P (MAP) 134/84 (101) Pulse Ox 98 100 100 100 O2 Delivery BiPAP/CPAP BiPAP/CPAP BiPAP/CPAP BiPAP/CPAP 10/30/20 10/30/20 10/30/20 10/30/20 03:00 07:00 08:00 08:23 Temp 98.4 98.3 98.4 98.3 Pulse 101 104 Resp 15 17 B/P (MAP) 136/80 (98) 136/77 (96) Pulse Ox 100 95 97 O2 Delivery BiPAP/CPAP Nasal Cannula Nasal Cannula Nasal Cannula O2 Flow Rate 2.0 2.0 3.0 10/30/20 08:35 B/P (MAP) 136/77 Intake and Output 10/29/20 10/29/20 10/30/20 15:00 23:00 07:00 Intake Total 1020 ml 500 ml 1200 ml Output Total 620 ml 100 ml 2600 ml Balance 400 ml 400 ml -1400 ml Justifications for Admission Other Justification KANDIS DU MD Oct 30, 2020 11:25
[2020-10-30] MEDS: AZITHROMYCIN 250 MG in IV NORMAL SALINE 250ML 250 ML IV SCH (13:52)
[2020-10-30 14:56] LABS: CALCIUM 8.4 mg/dL (8.5-10.1); CREATININE 1.6 mg/dL (0.7-1.3); GFR 55.6; POTASSIUM 5.2 mmol/L (3.5-5.1)
[2020-10-30 15:00] VITALS: BP 140/89
[2020-10-30] MEDS: HYDROcodone/APAP 5/325MG 1 TAB TABLET PO PRN (17:57)
[2020-10-30 19:00] VITALS: BP 172/81
[2020-10-30] MEDS: ATORVASTATIN CALCIUM 20 MG TABLET PO SCH (21:00)
[2020-10-30] MEDS: traZODone 100 MG TABLET. PO SCH (21:00)
[2020-10-30] MEDS: INSULIN GLARGINE SYRINGE. SQ SCH (21:02)
[2020-10-30 23:00] VITALS: BP 154/82
[2020-10-31] MEDS: PIPERACILLIN/TAZOBACTAM 3.375 GM in IV NORMAL SALINE 50ML 50 ML IV SCH ×4 (00:17→17:51)
[2020-10-31] MEDS: IV NORMAL SALINE 1000ML BAG 1,000 ML IV SCH (00:17)
[2020-10-31 03:00] VITALS: BP 155/98
[2020-10-31 05:33] LABS: HEMATOCRIT 33.5 % (39.0-53.0); HEMOGLOBIN 10.7 g/dL (13.0-17.5); RED BLOOD COUNT 3.8 x10^6/uL (4.30-5.70); RED CELL DISTRIBUTION WIDTH 14.9 % (11.5-14.5); WHITE BLOOD COUNT 11.9 x10^3/uL (4.0-11.0)
[2020-10-31 05:53] LABS: ALBUMIN 2.8 g/dL (3.4-5.0); ALBUMIN/GLOBULIN RATIO 0.7 (1.0-1.7); CALCIUM 8.8 mg/dL (8.5-10.1); CREATININE 1.3 mg/dL (0.7-1.3); GFR 70.7; POTASSIUM 4.7 mmol/L (3.5-5.1); TOTAL BILIRUBIN 0.5 mg/dL (0.2-1.0)
--- NOTE | 2020-10-31 06:07 | PDOC ---
PULMONARY PROGRESS NOTES DATE: 10/31/20 TIME: 06:06 Subjective on 02 2lpm sob better has cough used bipap for 4.5 hrs has hodan couldn't afford cpap Vitals Vital Signs Date Time Temp Pulse Resp B/P (MAP) Pulse Ox O2 Delivery O2 Flow Rate FiO2 10/31/20 03:15 96 BiPAP/CPAP 10/31/20 03:00 97.2 96 18 155/98 (117) 97.2 10/30/20 23:00 2.0 ROS: No Nausea, No Chest Pain General: Alert, No acute distress HEENT: Other (at perrl) Lungs: Crackles Cardiovascular: S1, S2 Abdomen: Soft, Non-tender, Other (obese) Neuro Exam: Alert Skin: Warm Labs Laboratory Tests Test 10/29/20 07:43 10/29/20 08:50 10/29/20 09:05 10/29/20 12:11 Glucose (Fingerstick) 215 mg/dL (70-99) 247 mg/dL (70-99) O2 Saturation 96 % (92-99) Arterial Blood pH 7.27 (7.35-7.45) Arterial Blood pCO2 at Patient Temp 61 mmHg (35-46) Arterial Blood pO2 at Patient Temp 91 mmHg (75-108) Arterial Blood HCO3 27 mmol/L (21-28) Arterial Blood Base Excess -1 mmol/L (-3-3) FiO2 12l Sodium Level 138 mmol/L (136-145) Potassium Level 5.2 mmol/L (3.5-5.1) Chloride Level 99 mmol/L (98-107) Carbon Dioxide Level 31 mmol/L (21-32) Anion Gap 8 (6-14) Blood Urea Nitrogen 49 mg/dL (8-26) Creatinine 2.6 mg/dL (0.7-1.3) Estimated GFR (Cockcroft-Gault) 31.8 Glucose Level 234 mg/dL (70-99) Calcium Level 8.6 mg/dL (8.5-10.1) Test 10/29/20 17:10 10/29/20 20:35 10/30/20 04:30 10/30/20 04:45 Glucose (Fingerstick) 372 mg/dL (70-99) 310 mg/dL (70-99) White Blood Count 21.8 x10^3/uL (4.0-11.0) Red Blood Count 3.68 x10^6/uL (4.30-5.70) Hemoglobin 10.5 g/dL (13.0-17.5) Hematocrit 32.3 % (39.0-53.0) Mean Corpuscular Volume 88 fL (79-100) Mean Corpuscular Hemoglobin 28 pg (25-35) Mean Corpuscular Hemoglobin Concent 32 g/dL (31-37) Red Cell Distribution Width 14.3 % (11.5-14.5) Platelet Count 230 x10^3/uL (140-400) Sodium Level 142 mmol/L (136-145) Potassium Level 5.4 mmol/L (3.5-5.1) Chloride Level 105 mmol/L (98-107) Carbon Dioxide Level 33 mmol/L (21-32) Anion Gap 4 (6-14) Blood Urea Nitrogen 46 mg/dL (8-26) Creatinine 1.8 mg/dL (0.7-1.3) Estimated GFR (Cockcroft-Gault) 48.6 BUN/Creatinine Ratio 26 (6-20) Glucose Level 175 mg/dL (70-99) Calcium Level 8.5 mg/dL (8.5-10.1) Total Bilirubin 0.3 mg/dL (0.2-1.0) Aspartate Amino Transf (AST/SGOT) 15 U/L (15-37) Alanine Aminotransferase (ALT/SGPT) 17 U/L (16-63) Alkaline Phosphatase 93 U/L (46-116) Total Protein 7.0 g/dL (6.4-8.2) Albumin 2.8 g/dL (3.4-5.0) Albumin/Globulin Ratio 0.7 (1.0-1.7) Test 10/30/20 08:32 10/30/20 11:57 10/30/20 14:30 10/30/20 17:27 Glucose (Fingerstick) 164 mg/dL (70-99) 195 mg/dL (70-99) 193 mg/dL (70-99) Sodium Level 141 mmol/L (136-145) Potassium Level 5.2 mmol/L (3.5-5.1) Chloride Level 104 mmol/L (98-107) Carbon Dioxide Level 33 mmol/L (21-32) Anion Gap 4 (6-14) Blood Urea Nitrogen 39 mg/dL (8-26) Creatinine 1.6 mg/dL (0.7-1.3) Estimated GFR (Cockcroft-Gault) 55.6 Glucose Level 225 mg/dL (70-99) Calcium Level 8.4 mg/dL (8.5-10.1) Test 10/31/20 05:00 White Blood Count 11.9 x10^3/uL (4.0-11.0) Red Blood Count 3.80 x10^6/uL (4.30-5.70) Hemoglobin 10.7 g/dL (13.0-17.5) Hematocrit 33.5 % (39.0-53.0) Mean Corpuscular Volume 88 fL (79-100) Mean Corpuscular Hemoglobin 28 pg (25-35) Mean Corpuscular Hemoglobin Concent 32 g/dL (31-37) Red Cell Distribution Width 14.9 % (11.5-14.5) Platelet Count 211 x10^3/uL (140-400) Sodium Level 144 mmol/L (136-145) Potassium Level 4.7 mmol/L (3.5-5.1) Chloride Level 107 mmol/L (98-107) Carbon Dioxide Level 34 mmol/L (21-32) Anion Gap 3 (6-14) Blood Urea Nitrogen 28 mg/dL (8-26) Creatinine 1.3 mg/dL (0.7-1.3) Estimated GFR (Cockcroft-Gault) 70.7 BUN/Creatinine Ratio 22 (6-20) Glucose Level 127 mg/dL (70-99) Calcium Level 8.8 mg/dL (8.5-10.1) Total Bilirubin 0.5 mg/dL (0.2-1.0) Aspartate Amino Transf (AST/SGOT) 13 U/L (15-37) Alanine Aminotransferase (ALT/SGPT) 14 U/L (16-63) Alkaline Phosphatase 85 U/L (46-116) Total Protein 7.0 g/dL (6.4-8.2) Albumin 2.8 g/dL (3.4-5.0) Albumin/Globulin Ratio 0.7 (1.0-1.7) Laboratory Tests Test 10/30/20 08:32 10/30/20 11:57 10/30/20 14:30 10/30/20 17:27 Glucose (Fingerstick) 164 mg/dL (70-99) 195 mg/dL (70-99) 193 mg/dL (70-99) Sodium Level 141 mmol/L (136-145) Potassium Level 5.2 mmol/L (3.5-5.1) Chloride Level 104 mmol/L (98-107) Carbon Dioxide Level 33 mmol/L (21-32) Anion Gap 4 (6-14) Blood Urea Nitrogen 39 mg/dL (8-26) Creatinine 1.6 mg/dL (0.7-1.3) Estimated GFR (Cockcroft-Gault) 55.6 Glucose Level 225 mg/dL (70-99) Calcium Level 8.4 mg/dL (8.5-10.1) Test 10/31/20 05:00 White Blood Count 11.9 x10^3/uL (4.0-11.0) Red Blood Count 3.80 x10^6/uL (4.30-5.70) Hemoglobin 10.7 g/dL (13.0-17.5) Hematocrit 33.5 % (39.0-53.0) Mean Corpuscular Volume 88 fL (79-100) Mean Corpuscular Hemoglobin 28 pg (25-35) Mean Corpuscular Hemoglobin Concent 32 g/dL (31-37) Red Cell Distribution Width 14.9 % (11.5-14.5) Platelet Count 211 x10^3/uL (140-400) Sodium Level 144 mmol/L (136-145) Potassium Level 4.7 mmol/L (3.5-5.1) Chloride Level 107 mmol/L (98-107) Carbon Dioxide Level 34 mmol/L (21-32) Anion Gap 3 (6-14) Blood Urea Nitrogen 28 mg/dL (8-26) Creatinine 1.3 mg/dL (0.7-1.3) Estimated GFR (Cockcroft-Gault) 70.7 BUN/Creatinine Ratio 22 (6-20) Glucose Level 127 mg/dL (70-99) Calcium Level 8.8 mg/dL (8.5-10.1) Total Bilirubin 0.5 mg/dL (0.2-1.0) Aspartate Amino Transf (AST/SGOT) 13 U/L (15-37) Alanine Aminotransferase (ALT/SGPT) 14 U/L (16-63) Alkaline Phosphatase 85 U/L (46-116) Total Protein 7.0 g/dL (6.4-8.2) Albumin 2.8 g/dL (3.4-5.0) Albumin/Globulin Ratio 0.7 (1.0-1.7) Medications Active Scripts Medications Dose Route/Sig Max Daily Dose Days Date Category Dose Instructions Cyclobenzaprine Hcl 10 Mg Tablet 1 Tab PO TID 10/28/20 Reported Cetirizine Hcl 10 Mg Tablet 1 Tab PO DAILY 10/28/20 Reported Trazodone Hcl 100 Mg Tablet 1 Tab PO QHS 10/28/20 Reported Omeprazole 40 Mg Capsule.dr 1 Cap PO DAILY 10/28/20 Reported Lisinopril 20 Mg Tablet 1 Tab PO DAILY 10/28/20 Reported Lantus Solostar (Insulin Glargine,Hum.rec.anlog) 100 Unit/1 Ml Insuln.pen 50 Unit SQ QHS 10/28/20 Reported Indomethacin 25 Mg Capsule Unknown Dose PO TID 10 10/28/20 Reported with food Gabapentin (Gabapentin) 300 Mg Capsule 300 Mg PO TID 10/28/20 Reported Atorvastatin Calcium 20 Mg Tablet 1 Tab PO DAILY 10/28/20 Reported Amlodipine Besylate 10 Mg Tablet 10 Mg PO DAILY 10/28/20 Reported Allopurinol 300 Mg Tablet 1 Tab PO DAILY 10/28/20 Reported Hydrocodone-Apap 5-325 (Hydrocodone Bit/Acetaminophen) 1 Each Tablet 2 Tab PO BID PRN 04/07/15 Reported Lorazepam 0.5 Mg Tablet 1 Tab PO BID 04/07/15 Reported Zoloft (Sertraline Hcl) 50 Mg Tablet 1 Tab PO DAILY 04/07/15 Reported Lantus Solostar (Insulin Glargine,Hum.rec.anlog) 100 Unit/1 Ml Insuln.pen 50 Unit SQ QHS 04/07/[address] of chest Right upper lobe consolidations with multifocal ground glass opacities bilaterally, concerning for pneumonia. Recommend short-term follow-up after treatment. Impression . IMPRESSION: 1. Acute hypoxemic hypercapnic respiratory failure. 2. Abnormal chest x-ray, right upper lobe infiltrate compatible with gram-negative, possibly gram-positive pneumonia. 3. Morbid obesity. 4. Obstructive sleep apnea. 5. Diabetes mellitus. 6. Acute on chronic kidney disease. 7. History of alcoholism. 8. Leukocytosis. improving 9. Hyperkalemia. resolved 10. Protein malnutrition present upon admission. 11. Status post COVID-19 vaccination. 12. Obstructive sleep apnea, possibly hypoventilation syndrome. Plan . PLAN: 1. 02 titration to keep sat 92% 2. Antibiotics per id avinash mathews 3. Transfer out of the intensive care unit. 4. Monitor in's and out's. 5. Monitor BUN and creatinine. improved dc iv fluid 6. 6 min walk at dc 7. The patient is strongly encouraged to initiate use of CPAP. 8. hodan the importance of tx discussed use bipap qhs 9. need split night sleep study as out pt he doesnt have cpap he needs to be re evaluated 10. lose wt, exercise discussed w rn pt NATHALIE CHAN MD Oct 31, 2020 06:07
[2020-10-31 07:00] VITALS: BP 188/107
[2020-10-31] MEDS: ALBUTEROL SULFATE 2.5 MG/3 ML NEBU. NEB SCH ×4 (07:18→20:00)
--- NOTE | 2020-10-31 07:36 | PDOC ---
Infectious Disease Note Subjective: Subjective Patient feels much better cont to remain on 2 L O2 by nasal cannula No fever, headache, nausea, vomiting, abdominal pain Vital Signs: Vital Signs Vital Signs Date Time Temp Pulse Resp B/P (MAP) Pulse Ox O2 Delivery O2 Flow Rate FiO2 10/31/20 07:20 92 Nasal Cannula 2.0 10/31/20 03:00 97.2 96 18 155/98 (117) 97.2 Physical Exam: PHYSICAL EXAM GENERAL: Morbidly obese, alert, awake, oriented x 3 male lying in bed on nasal O2. HEENT: Normocephalic, atraumatic. No thrush, no oropharyngeal exudate. NECK: Supple. LUNGS: Decreased breath sounds on the right upper lobe. No wheezing. HEART: S1, S2, No murmurs appreciated. ABDOMEN: Obese, soft, nontender, nondistended. Bowel sounds present. EXTREMITIES: No edema, no cyanosis NEUROLOGIC: Alert and oriented x 3, grossly nonfocal. PSYCHIATRIC: Calm and cooperative. DERM: Warm, dry, no generalized rash. Medications: Inpatient Meds: Medications reviewed. Labs: Lab Laboratory Tests Test 10/30/20 08:32 10/30/20 11:57 10/30/20 14:30 10/30/20 17:27 Glucose (Fingerstick) 164 mg/dL (70-99) 195 mg/dL (70-99) 193 mg/dL (70-99) Sodium Level 141 mmol/L (136-145) Potassium Level 5.2 mmol/L (3.5-5.1) Chloride Level 104 mmol/L (98-107) Carbon Dioxide Level 33 mmol/L (21-32) Anion Gap 4 (6-14) Blood Urea Nitrogen 39 mg/dL (8-26) Creatinine 1.6 mg/dL (0.7-1.3) Estimated GFR (Cockcroft-Gault) 55.6 Glucose Level 225 mg/dL (70-99) Calcium Level 8.4 mg/dL (8.5-10.1) Test 10/31/20 05:00 White Blood Count 11.9 x10^3/uL (4.0-11.0) Red Blood Count 3.80 x10^6/uL (4.30-5.70) Hemoglobin 10.7 g/dL (13.0-17.5) Hematocrit 33.5 % (39.0-53.0) Mean Corpuscular Volume 88 fL (79-100) Mean Corpuscular Hemoglobin 28 pg (25-35) Mean Corpuscular Hemoglobin Concent 32 g/dL (31-37) Red Cell Distribution Width 14.9 % (11.5-14.5) Platelet Count 211 x10^3/uL (140-400) Sodium Level 144 mmol/L (136-145) Potassium Level 4.7 mmol/L (3.5-5.1) Chloride Level 107 mmol/L (98-107) Carbon Dioxide Level 34 mmol/L (21-32) Anion Gap 3 (6-14) Blood Urea Nitrogen 28 mg/dL (8-26) Creatinine 1.3 mg/dL (0.7-1.3) Estimated GFR (Cockcroft-Gault) 70.7 BUN/Creatinine Ratio 22 (6-20) Glucose Level 127 mg/dL (70-99) Calcium Level 8.8 mg/dL (8.5-10.1) Total Bilirubin 0.5 mg/dL (0.2-1.0) Aspartate Amino Transf (AST/SGOT) 13 U/L (15-37) Alanine Aminotransferase (ALT/SGPT) 14 U/L (16-63) Alkaline Phosphatase 85 U/L (46-116) Total Protein 7.0 g/dL (6.4-8.2) Albumin 2.8 g/dL (3.4-5.0) Albumin/Globulin Ratio 0.7 (1.0-1.7) Objective: Assessment: 1. Acute hypoxic respiratory failure. 2. Right upper lobe pneumonia. CT chest noted 3. Leukocytosis, also received prednisone at outside hospital. improving 4. Acute kidney injury with hyperkalemia. 5. Diabetes mellitus, poorly controlled. 6. History of fall. 7. History of asthma. 8. History of recent gastroenteritis. Plan: Plan of Care Continue Zosyn and azithromycin Follow up labs and cultures. Continue supportive care. Maintain aspiration precaution. D/W JESSIE KING MD Oct 31, 2020 07:36
[2020-10-31] MEDS: INSULIN LISPRO 300 UNITS/3 ML VIAL. SQ SCH ×3 (08:00→17:55)
[2020-10-31] MEDS: ENOXAPARIN 40 MG/0.4 ML SYRINGE. SQ SCH ×2 (08:46→21:06)
[2020-10-31] MEDS: PANTOPRAZOLE 40 MG TABLET.DR. PO SCH (08:46)
[2020-10-31] MEDS: CETIRIZINE HCL 10 MG TABLET. PO SCH (08:46)
[2020-10-31] MEDS: GABAPENTIN 300 MG CAPSULE. PO SCH ×3 (08:46→21:06)
[2020-10-31] MEDS: SERTRALINE 50 MG TABLET. PO SCH (08:46)
[2020-10-31] MEDS: LACTOBACILLUS RHAMNOSUS GG 1 CAPSULE. PO SCH ×2 (08:46→21:06)
[2020-10-31] MEDS: CYCLOBENZAPRINE 10 MG TABLET. PO SCH ×3 (08:47→21:06)
[2020-10-31] MEDS: LORazepam 0.5 MG TABLET PO SCH ×2 (08:47→21:06)
[2020-10-31 11:00] VITALS: BP 160/82
[2020-10-31] MEDS: AZITHROMYCIN 250 MG in IV NORMAL SALINE 250ML 250 ML IV SCH (13:27)
--- NOTE | 2020-10-31 13:56 | PN ---
DATE: 10/31/2020 SUBJECTIVE: The patient is resting flat in bed, in no apparent distress. He is awake, alert, maintaining his oxygen saturation at 96% on 2 liters of oxygen via nasal cannula. He continued to complain of pain in his right side, mostly in his upper and right lower extremities as he apparently fell [place] the [place] on his way to this hospital from [facility]. OBJECTIVE: GENERAL: When examining him, he looked well and was clearly in no apparent respiratory distress. He was pale, no jaundice, cyanosis or thyromegaly. No jugular distention. No lower limb edema. VITAL SIGNS: His heart rate was 96, blood pressure is 155/98, temperature 97.2, respiratory rate was 18 and oxygen saturation was 96% on 2 liters of oxygen. HEAD, EYES, EARS, NOSE AND THROAT: Normocephalic, atraumatic. NECK: Supple. HEART: Normal first and second heart sounds, no gallop or murmur. CHEST: Showed central trachea, equal reduced expansion, reduced air entry, vesicular sounds. No crepitation or rhonchi. ABDOMEN: Distended, soft, nontender. NEUROLOGIC: He is definitely awake, alert, responding appropriately. Cranial nerves intact. He moves extremities without difficulty. His intake was 2770, output was 3320. LABORATORY DATA: As of this morning, his white cell count is down to 11,900, hemoglobin 10.7, hematocrit 33, MCV 88 and platelet count 211,000. His serum sodium is 144, potassium 4.7, chloride 107, bicarbonate 34, anion gap of 3, BUN 29, creatinine 1.3. Estimated GFR was 70 mL per minute. Her glucose 127, calcium was 8.8. Total bilirubin, AST, ALT, alkaline phosphatase were normal. Total protein 7, albumin was 2.8. ASSESSMENT: 1. Community-acquired pneumonia. 2. Acute hypoxic respiratory failure, improving, his oxygen requirement is down to 2 liters per nasal cannula. 3. Acute kidney injury, likely multifactorial. His creatinine is down to 1.3. 4. Morbid obesity and obstructive sleep apnea. 5. Poorly controlled type 2 diabetes mellitus. 6. Hypertension. PLAN: To continue with IV antibiotic. He is now on Zosyn and Zithromax. Continue with IV fluid. I did discontinue his lisinopril, indomethacin and his creatinine is down from 2.6 to 1.3. Continue to monitor his blood sugar and adjust insulin as needed. Start the process of physical and occupational therapy. The patient can be transferred to the floor. YAN/SUSI DR: Saravanan TID: [id number]
[2020-10-31 15:00] VITALS: BP 171/99
[2020-10-31] MEDS: HYDROcodone/APAP 5/325MG 1 TAB TABLET PO PRN ×2 (17:52→22:32)
[2020-10-31 19:40] VITALS: BP 166/92
[2020-10-31] MEDS: LATANOPROST 0.005% OPHTH SOLUTION 2.5ML BOTTLE. OU SCH (21:00)
[2020-10-31] MEDS: ATORVASTATIN CALCIUM 20 MG TABLET PO SCH (21:06)
[2020-10-31] MEDS: traZODone 100 MG TABLET. PO SCH (21:06)
[2020-10-31] MEDS: INSULIN GLARGINE SYRINGE. SQ SCH (22:48)
[2020-10-31 23:32] VITALS: BP 141/90
[2020-11-01 02:59] VITALS: BP 153/89
[2020-11-01] MEDS: PIPERACILLIN/TAZOBACTAM 3.375 GM in IV NORMAL SALINE 50ML 50 ML IV SCH ×2 (06:12)
[2020-11-01 07:06] VITALS: BP 146/89
[2020-11-01 07:10] LABS: GFR 95.7
[2020-11-01] MEDS: ALBUTEROL SULFATE 2.5 MG/3 ML NEBU. NEB SCH ×4 (07:13→20:00)
[2020-11-01] MEDS: PANTOPRAZOLE 40 MG TABLET.DR. PO SCH (07:22)
[2020-11-01] MEDS: INSULIN LISPRO 300 UNITS/3 ML VIAL. SQ SCH ×3 (08:00→17:59)
--- NOTE | 2020-11-01 08:41 | NUR ---
This morning patient BS was 53. Apple juice and 12.5mg of 50% dextrose was given to the patient. Patient BS recheck after intervention was [address] Collins was notified
--- NOTE | 2020-11-01 09:20 | PDOC ---
Infectious Disease Note Subjective Subjective Patient feels much better cont to remain on 2 L O2 by nasal cannula No fever, headache, nausea, vomiting, abdominal pain Vital Sign Vital Signs Vital Signs Date Time Temp Pulse Resp B/P (MAP) Pulse Ox O2 Delivery O2 Flow Rate FiO2 11/01/20 07:15 91 Room Air 11/01/20 07:06 97.9 89 18 146/89 (108) 97.9 10/31/20 23:32 2.0 Physical Exam PHYSICAL EXAM GENERAL: Morbidly obese, alert, awake, oriented x 3 male lying in bed on nasal O2. HEENT: Normocephalic, atraumatic. No thrush, no oropharyngeal exudate. NECK: Supple. LUNGS: Decreased breath sounds on the right upper lobe. No wheezing. HEART: S1, S2, No murmurs appreciated. ABDOMEN: Obese, soft, nontender, nondistended. Bowel sounds present. EXTREMITIES: No edema, no cyanosis NEUROLOGIC: Alert and oriented x 3, grossly nonfocal. PSYCHIATRIC: Calm and cooperative. DERM: Warm, dry, no generalized rash. Labs Lab Laboratory Tests Test 10/31/20 12:37 10/31/20 17:48 10/31/20 21:05 11/01/20 05:50 Glucose (Fingerstick) 119 mg/dL (70-99) 176 mg/dL (70-99) 265 mg/dL (70-99) Sodium Level 145 mmol/L (136-145) Potassium Level 4.0 mmol/L (3.5-5.1) Chloride Level 105 mmol/L (98-107) Carbon Dioxide Level 37 mmol/L (21-32) Anion Gap 3 (6-14) Blood Urea Nitrogen 15 mg/dL (8-26) Creatinine 1.0 mg/dL (0.7-1.3) Estimated GFR (Cockcroft-Gault) 95.7 Glucose Level 72 mg/dL (70-99) Calcium Level 9.0 mg/dL (8.5-10.1) Test 11/01/20 06:52 11/01/20 07:54 Glucose (Fingerstick) 53 mg/dL (70-99) 120 mg/dL (70-99) Micro Microbiology 10/29/20 Blood Culture - Preliminary, Resulted NO GROWTH AFTER 3 DAYS Objective Assessment 1. Acute hypoxic respiratory failure. 2. Right upper lobe pneumonia. CT chest noted 3. Leukocytosis, also received prednisone at outside hospital. improving 4. Acute kidney injury with hyperkalemia. 5. Diabetes mellitus, poorly controlled. 6. History of fall. 7. History of asthma. 8. History of recent gastroenteritis. Plan Plan of Care change antibiotics to po augmentin may need bronch , per pulmonary Follow up labs and cultures. Continue supportive care. Maintain aspiration precaution. D/W LESVIA KING MD Nov 01, 2020 09:20
[2020-11-01] MEDS: LACTOBACILLUS RHAMNOSUS GG 1 CAPSULE. PO SCH ×2 (09:26→20:55)
[2020-11-01] MEDS: CETIRIZINE HCL 10 MG TABLET. PO SCH (09:27)
[2020-11-01] MEDS: GABAPENTIN 300 MG CAPSULE. PO SCH ×3 (09:27→20:55)
[2020-11-01] MEDS: SERTRALINE 50 MG TABLET. PO SCH (09:27)
[2020-11-01] MEDS: ENOXAPARIN 40 MG/0.4 ML SYRINGE. SQ SCH ×2 (09:27→20:56)
[2020-11-01] MEDS: CYCLOBENZAPRINE 10 MG TABLET. PO SCH ×3 (09:27→20:55)
[2020-11-01] MEDS: LORazepam 0.5 MG TABLET PO SCH ×2 (09:27→20:55)
--- NOTE | 2020-11-01 09:44 | PDOC ---
PULMONARY PROGRESS NOTES DATE: 11/01/20 TIME: 09:44 Subjective pt. resting on N/C no overnight events no SOA or cough Vitals Vital Signs Date Time Temp Pulse Resp B/P (MAP) Pulse Ox O2 Delivery O2 Flow Rate FiO2 11/01/20 09:27 89 146/89 11/01/20 07:15 91 Room Air 11/01/20 07:06 97.9 18 97.9 10/31/20 23:32 2.0 ROS: No Nausea, No Chest Pain, No Abdominal Pain, No Increase Cough General: Alert, Oriented X4, No acute distress HEENT: Other Lungs: Clear Cardiovascular: S1, S2 Abdomen: Soft, Non-tender, Other (obese) Neuro Exam: Alert Skin: Warm Labs Laboratory Tests Test 10/30/20 11:57 10/30/20 14:30 10/30/20 17:27 10/31/20 05:00 Glucose (Fingerstick) 195 mg/dL (70-99) 193 mg/dL (70-99) Sodium Level 141 mmol/L (136-145) 144 mmol/L (136-145) Potassium Level 5.2 mmol/L (3.5-5.1) 4.7 mmol/L (3.5-5.1) Chloride Level 104 mmol/L (98-107) 107 mmol/L (98-107) Carbon Dioxide Level 33 mmol/L (21-32) 34 mmol/L (21-32) Anion Gap 4 (6-14) 3 (6-14) Blood Urea Nitrogen 39 mg/dL (8-26) 28 mg/dL (8-26) Creatinine 1.6 mg/dL (0.7-1.3) 1.3 mg/dL (0.7-1.3) Estimated GFR (Cockcroft-Gault) 55.6 70.7 Glucose Level 225 mg/dL (70-99) 127 mg/dL (70-99) Calcium Level 8.4 mg/dL (8.5-10.1) 8.8 mg/dL (8.5-10.1) White Blood Count 11.9 x10^3/uL (4.0-11.0) Red Blood Count 3.80 x10^6/uL (4.30-5.70) Hemoglobin 10.7 g/dL (13.0-17.5) Hematocrit 33.5 % (39.0-53.0) Mean Corpuscular Volume 88 fL (79-100) Mean Corpuscular Hemoglobin 28 pg (25-35) Mean Corpuscular Hemoglobin Concent 32 g/dL (31-37) Red Cell Distribution Width 14.9 % (11.5-14.5) Platelet Count 211 x10^3/uL (140-400) BUN/Creatinine Ratio 22 (6-20) Total Bilirubin 0.5 mg/dL (0.2-1.0) Aspartate Amino Transf (AST/SGOT) 13 U/L (15-37) Alanine Aminotransferase (ALT/SGPT) 14 U/L (16-63) Alkaline Phosphatase 85 U/L (46-116) Total Protein 7.0 g/dL (6.4-8.2) Albumin 2.8 g/dL (3.4-5.0) Albumin/Globulin Ratio 0.7 (1.0-1.7) Test 10/31/20 08:43 10/31/20 12:37 10/31/20 17:48 10/31/20 21:05 Glucose (Fingerstick) 66 mg/dL (70-99) 119 mg/dL (70-99) 176 mg/dL (70-99) 265 mg/dL (70-99) Test 11/01/20 05:50 11/01/20 06:52 11/01/20 07:54 Sodium Level 145 mmol/L (136-145) Potassium Level 4.0 mmol/L (3.5-5.1) Chloride Level 105 mmol/L (98-107) Carbon Dioxide Level 37 mmol/L (21-32) Anion Gap 3 (6-14) Blood Urea Nitrogen 15 mg/dL (8-26) Creatinine 1.0 mg/dL (0.7-1.3) Estimated GFR (Cockcroft-Gault) 95.7 Glucose Level 72 mg/dL (70-99) Calcium Level 9.0 mg/dL (8.5-10.1) Glucose (Fingerstick) 53 mg/dL (70-99) 120 mg/dL (70-99) Laboratory Tests Test 10/31/20 12:37 10/31/20 17:48 10/31/20 21:05 11/01/20 05:50 Glucose (Fingerstick) 119 mg/dL (70-99) 176 mg/dL (70-99) 265 mg/dL (70-99) Sodium Level 145 mmol/L (136-145) Potassium Level 4.0 mmol/L (3.5-5.1) Chloride Level 105 mmol/L (98-107) Carbon Dioxide Level 37 mmol/L (21-32) Anion Gap 3 (6-14) Blood Urea Nitrogen 15 mg/dL (8-26) Creatinine 1.0 mg/dL (0.7-1.3) Estimated GFR (Cockcroft-Gault) 95.7 Glucose Level 72 mg/dL (70-99) Calcium Level 9.0 mg/dL (8.5-10.1) Test 11/01/20 06:52 11/01/20 07:54 Glucose (Fingerstick) 53 mg/dL (70-99) 120 mg/dL (70-99) Medications Active Scripts Medications Dose Route/Sig Max Daily Dose Days Date Category Dose Instructions Cyclobenzaprine Hcl 10 Mg Tablet 1 Tab PO TID 10/28/20 Reported Cetirizine Hcl 10 Mg Tablet 1 Tab PO DAILY 10/28/20 Reported Trazodone Hcl 100 Mg Tablet 1 Tab PO QHS 10/28/20 Reported Omeprazole 40 Mg Capsule.dr 1 Cap PO DAILY 10/28/20 Reported Lisinopril 20 Mg Tablet 1 Tab PO DAILY 10/28/20 Reported Lantus Solostar (Insulin Glargine,Hum.rec.anlog) 100 Unit/1 Ml Insuln.pen 50 Unit SQ QHS 10/28/20 Reported Indomethacin 25 Mg Capsule Unknown Dose PO TID 10 10/28/20 Reported with food Gabapentin (Gabapentin) 300 Mg Capsule 300 Mg PO TID 10/28/20 Reported Atorvastatin Calcium 20 Mg Tablet 1 Tab PO DAILY 10/28/20 Reported Amlodipine Besylate 10 Mg Tablet 10 Mg PO DAILY 10/28/20 Reported Allopurinol 300 Mg Tablet 1 Tab PO DAILY 10/28/20 Reported Hydrocodone-Apap 5-325 (Hydrocodone Bit/Acetaminophen) 1 Each Tablet 2 Tab PO BID PRN 04/07/15 Reported Lorazepam 0.5 Mg Tablet 1 Tab PO BID 04/07/15 Reported Zoloft (Sertraline Hcl) 50 Mg Tablet 1 Tab PO DAILY 04/07/15 Reported Lantus Solostar (Insulin Glargine,Hum.rec.anlog) 100 Unit/1 Ml Insuln.pen 50 Unit SQ QHS 04/07/[address] of chest Right upper lobe consolidations with multifocal ground glass opacities bilaterally, concerning for pneumonia. Recommend short-term follow-up after treatment. Impression . IMPRESSION: 1. Acute hypoxemic hypercapnic respiratory failure--improved 2. Abnormal chest x-ray, right upper lobe infiltrate compatible with gram-negative, possibly gram-positive pneumonia. 3. Morbid obesity. 4. Obstructive sleep apnea-- unable to afford cpap 5. Diabetes mellitus. 6. Acute on chronic kidney disease--stable 7. History of alcoholism. 8. Leukocytosis. improving 9. Hyperkalemia. resolved 10. Protein malnutrition present upon admission. 11. Status post COVID-19 vaccination. 12. Obstructive sleep apnea, possibly hypoventilation syndrome. Plan . PLAN: Continue supplemental oxygen to keep sats above 92% 6 min walk before DC Follow ID recs-- for ABX changed to po Augmentin Follow Renal recs CPAP at HS discussed importance of compliance Pt. will need outpatient sleep Polysomnogram DVT/GI PPX Social Work for DC planning-- planned to discharge in am Discussed W/ RN and Patient RICHARD SCHROEDER MD Nov 01, 2020 09:44
--- NOTE | 2020-11-01 10:19 | PDOC ---
DATE OF SERVICE DATE: 11/01/20 TIME: 10:19 SUBJECTIVE ROS states feeling fair. On o2 by RI OBJECTIVE Vital Signs Vital Signs Date Time Temp Pulse Resp B/P (MAP) Pulse Ox O2 Delivery O2 Flow Rate FiO2 11/01/20 09:27 89 146/89 11/01/20 07:15 91 Room Air 11/01/20 07:06 97.9 18 97.9 10/31/20 23:32 2.0 I & 0 Intake and Output0 11/01/20 07:00 Intake Total 1330 ml Output Total 3170 ml Balance -1840 ml Intake Oral 1330 ml Output Urine Total 3170 ml # Bowel Movements 1 PHYSICAL EXAM Physical Exam GENERAL: Morbidly obese, mild distress, propped up in bed HEENT: Normocephalic, atraumatic. OM moist, On o2 by NC - high flow NECK: Supple. neck due to short and stocky LUNGS: Decreased breath sounds on the right upper lobe and bases, HEART: S1, S2, tachycardia. ABDOMEN: Obese, soft, nontender, nondistended. Bowel sounds present. EXTREMITIES: No edema, no cyanosis , Bilat LE edema 1- 2+ NEUROLOGIC: Alert and oriented x 3, grossly nonfocal. PSYCHIATRIC: Calm and cooperative. DERM: Warm, dry, no generalized rash Ahn +, No CVA or SP tenderness DIAGNOSIS/ASSESSMENT Assessment & Plan ANUPAMA - ATN/ urinary retention , Resolved supportive care, strict i/o, avoid nephrotoxins Urinary retention - Bladder scan ordered at presentation with- 850 ml Urine . Prior to dc voiding trial after ahn dced . HyperKalemia POA - resolved Recent gastroenteritis - ANUPAMA /Dehydration Urinary retention - as above , No prior Dx of BPH per patient, follows with his PCP Acute hypoxic respiratory failure much improved Right upper lobe pneumonia - Abx , ID managing Leukocytosis, also received prednisone at outside hospital. Diabetes mellitus, poorly controlled. History of fall. COMMENT/RELEVANT DATA Meds Current Medications Medications (Trade) Dose Ordered Sig/Bobby Start Time Stop Time Status Last Admin Dose Admin Acetaminophen/ Hydrocodone Bitart (Lortab 5/325) 2 tab PRN BID PRN 10/28/20 18:30 10/31/20 22:32 2 TAB Albuterol Sulfate (Ventolin Neb Soln) 2.5 mg RTQID 10/28/20 20:00 11/01/20 07:13 2.5 MG Amlodipine Besylate (Norvasc) 10 mg DAILY 10/29/20 09:00 11/01/20 09:27 10 MG Amoxicillin/ Clavulanate Potassium (Augmentin 875/ 125mg) 1 tab BID 11/01/20 21:00 Atorvastatin Calcium (Lipitor) 20 mg QHS 10/28/20 21:00 10/31/20 21:06 20 MG Azithromycin 250 mg/Sodium Chloride 250 ml @ 250 mls/hr Q24H 10/29/20 13:00 11/01/20 09:22 DC 10/31/20 13:27 250 MLS/HR Calcium Gluconate (Calcium Gluconate) 1,000 mg 1X ONCE 10/29/20 06:30 10/29/20 06:31 DC 10/29/20 06:28 1,000 MG Ceftriaxone Sodium (Rocephin) 1 gm Q24H 10/29/20 13:00 10/29/20 09:09 DC Cetirizine HCl (ZyrTEC) 10 mg DAILY 10/29/20 09:00 11/01/20 09:27 10 MG Cyclobenzaprine HCl (Flexeril) 10 mg TID 10/28/20 21:00 11/01/20 09:27 10 MG Dextrose (Dextrose 50%-Water Syringe) 12.5 gm PRN Q15MIN PRN 10/30/20 07:30 UNV Dextrose (Iv Dextrose 5%) 250 ml PRN Q15MIN PRN 10/29/20 09:00 UNV Enoxaparin Sodium (Lovenox 40mg Syringe) 40 mg Q12HR 10/29/20 21:00 11/01/20 09:27 40 MG Gabapentin (Neurontin) 300 mg TID 10/28/20 21:00 11/01/20 09:27 300 MG Indomethacin (Indocin) 25 mg TID 10/28/20 21:00 10/29/20 08:12 DC 10/28/20 21:17 25 MG Insulin Glargine (Lantus Syringe) 50 unit QHS 10/28/20 21:00 10/31/20 22:48 50 UNIT Insulin Human Lispro (HumaLOG) 0-9 UNITS TIDWMEALS 10/30/20 08:00 10/31/20 17:55 4 UNITS Insulin Human Regular (HumuLIN R VIAL) 10 unit 1X ONCE 10/29/20 07:00 10/29/20 07:01 DC 10/29/20 06:38 10 UNIT Lactobacillus Rhamnosus (Culturelle) 1 cap BID 10/29/20 21:00 11/01/20 09:26 1 CAP Latanoprost (Xalatan) 1 drop QHS 10/31/20 21:00 10/31/20 21:00 1 DROP Lisinopril (Prinivil) 20 mg DAILY 10/29/20 09:00 10/29/20 08:12 DC Lorazepam (Ativan) 0.5 mg BID 10/28/20 21:00 11/01/20 09:27 0.5 MG Non-Formulary Medication (Insulin Glargine,Hum.rec.anlog (Lantus Solostar)) 50 unit QHS 10/28/20 21:00 UNV Pantoprazole Sodium (Protonix) 40 mg DAILYAC 10/29/20 07:30 11/01/20 07:22 40 MG Piperacillin Sod/ Tazobactam Sod 3.375 gm/Sodium Chloride 50 ml @ 100 mls/hr Q6HRS 10/29/20 10:00 11/01/20 09:22 DC 11/01/20 06:12 100 MLS/HR Sertraline HCl (Zoloft) 50 mg DAILY 10/29/20 09:00 11/01/20 09:27 50 MG Sodium Bicarbonate (Sodium Bicarb Adult 8.4% Syr) 50 meq 1X ONCE 10/29/20 07:00 10/29/20 07:01 DC 10/29/20 06:37 50 MEQ Sodium Chloride 1,000 ml @ 100 mls/hr Q10H 10/29/20 08:45 10/31/20 06:06 DC 10/30/20 21:00 100 MLS/HR Trazodone HCl (Desyrel) 100 mg QHS 10/28/20 21:00 10/31/20 21:06 100 MG Lab Laboratory Tests Test 10/31/20 12:37 10/31/20 17:48 10/31/20 21:05 11/01/20 05:50 Glucose (Fingerstick) 119 mg/dL (70-99) 176 mg/dL (70-99) 265 mg/dL (70-99) Sodium Level 145 mmol/L (136-145) Potassium Level 4.0 mmol/L (3.5-5.1) Chloride Level 105 mmol/L (98-107) Carbon Dioxide Level 37 mmol/L (21-32) Anion Gap 3 (6-14) Blood Urea Nitrogen 15 mg/dL (8-26) Creatinine 1.0 mg/dL (0.7-1.3) Estimated GFR (Cockcroft-Gault) 95.7 Glucose Level 72 mg/dL (70-99) Calcium Level 9.0 mg/dL (8.5-10.1) Test 11/01/20 06:52 11/01/20 07:54 Glucose (Fingerstick) 53 mg/dL (70-99) 120 mg/dL (70-99) Results All relevant outside records, renal labs, imaging studies, telemetry/EKG's were reviewed. Justicifation of Admission Dx: Justifications for Admission: Justification of Admission Dx: N/A MAYELA GUZMAN MD Nov 01, 2020 10:19
--- NOTE | 2020-11-01 10:37 | NUR ---
SW following. Discussed with RN, pt from home, 2L, ada diet. Will need a 6 minute walk prior to discharge. Therapy recommending home health. SW to meet with pt to discuss. Dr. Collins stating pt is not ready for discharge today. SW will continue to follow. Addendum: 11/01/20 at 1510 by MAGALI STOCK SW met with pt to discuss home health. Pt agreeable however is aware his insurance can be difficult to find home health for. Pt agreeable to outpatient therapy if SW unable to find home health.
[2020-11-01 10:41] VITALS: BP 131/89
--- NOTE | 2020-11-01 10:46 | PN ---
DATE: 11/01/2020 SUBJECTIVE: The patient is resting slightly propped up in bed, slightly tachypneic. On questioning him, he continued to complain of severe back pain. OBJECTIVE: GENERAL: When I examined him, he looked well and was clearly in no apparent respiratory distress. No pallor, jaundice, cyanosis, or thyromegaly. No jugular venous distention, no lower limb edema. VITAL SIGNS: His heart rate was 89, blood pressure was 146/89, temperature was 97.9, respiratory rate was 18 and oxygen saturation was 88% on room air, has improved to 93% on 2 liters of oxygen by nasal cannula. HEAD, EYES, EARS, NOSE AND THROAT: Normocephalic, atraumatic. NECK: Supple. HEART: Normal first and second heart sounds. No gallop or murmur. CHEST: Shows central trachea, equally reduced expansion, reduced air entry, vesicular sounds. I could not really appreciate any crepitation or rhonchi. ABDOMEN: Distended, soft, tender. NEUROLOGIC: He is definitely more awake, alert, responding appropriately. Cranial nerves intact. He moves extremities without difficulty. His intake over the last 24 hours was 4422, output was 4400. LABORATORY DATA: His serum sodium was 145, potassium 4, chloride 105, bicarbonate 37, anion gap of 3, BUN 15, creatinine 1, estimated GFR was 95 mL per minute. His glucose was 72 and calcium was 9. ASSESSMENT: 1. Acute hypoxic respiratory failure, improved, although he probably has chronic hypoxic respiratory failure as he was hypoxic with an oxygen saturation of only 88% on room air, that improved to 93% on 2 liters of oxygen. 2. Community-acquired pneumonia, improving clinically. His white cell count is down. He is afebrile. 3. Acute kidney injury, resolved. His creatinine is down to 1 mg/dL. 4. Morbid obesity and obstructive sleep apnea. 5. Poorly controlled type 2 diabetes mellitus. 6. Hypertension. PLAN: To continue IV antibiotic. Continue with oxygen supplementation. All his blood cultures have been negative. We will arrange for him to have a 6-minute walk. He will probably require home oxygen. Hopefully, he can be discharged home tomorrow. QUIN DR: Saravanan TID: [id number]
[2020-11-01] MEDS: HYDROcodone/APAP 5/325MG 1 TAB TABLET PO PRN ×2 (10:54→20:10)
[2020-11-01 14:36] VITALS: BP 175/82
[2020-11-01 19:00] VITALS: BP 163/95
[2020-11-01] MEDS: AMOXICILLIN/K CLAV 875/125MG TABLET. PO SCH (20:55)
[2020-11-01] MEDS: traZODone 100 MG TABLET. PO SCH (20:55)
[2020-11-01] MEDS: ATORVASTATIN CALCIUM 20 MG TABLET PO SCH (20:56)
[2020-11-01] MEDS: LATANOPROST 0.005% OPHTH SOLUTION 2.5ML BOTTLE. OU SCH (20:56)
[2020-11-01] MEDS: INSULIN GLARGINE SYRINGE. SQ SCH (21:08)
[2020-11-01 23:00] VITALS: BP 135/73
[2020-11-02 03:00] VITALS: BP 132/84
[2020-11-02] MEDS: PANTOPRAZOLE 40 MG TABLET.DR. PO SCH (06:09)
[2020-11-02] MEDS: HYDROcodone/APAP 5/325MG 1 TAB TABLET PO PRN ×2 (06:09→14:19)
[2020-11-02] MEDS: ALBUTEROL SULFATE 2.5 MG/3 ML NEBU. NEB SCH ×2 (06:52→11:18)
[2020-11-02 07:00] VITALS: BP 129/78
[2020-11-02] MEDS: INSULIN LISPRO 300 UNITS/3 ML VIAL. SQ SCH ×2 (08:00→12:00)
--- NOTE | 2020-11-02 08:49 | PDOC ---
Infectious Disease Note Subjective Subjective Patient feels much better cont to remain on 2 L O2 by nasal cannula No fever, headache, nausea, vomiting, abdominal pain Vital Sign Vital Signs Vital Signs Date Time Temp Pulse Resp B/P (MAP) Pulse Ox O2 Delivery O2 Flow Rate FiO2 11/02/20 07:00 97.9 91 17 129/78 (95) 94 Nasal Cannula 2.0 97.9 Physical Exam PHYSICAL EXAM GENERAL: Morbidly obese, alert, awake, oriented x 3 male lying in bed on nasal O2. HEENT: Normocephalic, atraumatic. No thrush, no oropharyngeal exudate. NECK: Supple. LUNGS: Decreased breath sounds on the right upper lobe. No wheezing. HEART: S1, S2, No murmurs appreciated. ABDOMEN: Obese, soft, nontender, nondistended. Bowel sounds present. EXTREMITIES: No edema, no cyanosis NEUROLOGIC: Alert and oriented x 3, grossly nonfocal. PSYCHIATRIC: Calm and cooperative. DERM: Warm, dry, no generalized rash. Labs Lab Laboratory Tests Test 11/01/20 10:55 11/01/20 16:13 11/01/20 20:52 11/02/20 07:22 Glucose (Fingerstick) 125 mg/dL (70-99) 234 mg/dL (70-99) 189 mg/dL (70-99) 103 mg/dL (70-99) Micro Microbiology 10/29/20 Blood Culture - Preliminary, Resulted NO GROWTH AFTER 3 DAYS Objective Assessment 1. Acute hypoxic respiratory failure. 2. Right upper lobe pneumonia. CT chest noted 3. Leukocytosis, also received prednisone at outside hospital. improving 4. Acute kidney injury with hyperkalemia. 5. Diabetes mellitus, poorly controlled. 6. History of fall. 7. History of asthma. 8. History of recent gastroenteritis. Plan Plan of Care po augmentin Follow up labs and cultures. Continue supportive care. Maintain aspiration precaution. D/W LESVIA KING MD Nov 02, 2020 08:49
[2020-11-02] MEDS ORDERED: AMOX1TAB61 PO (09:13)
[2020-11-02] MEDS: SERTRALINE 50 MG TABLET. PO SCH (09:47)
[2020-11-02] MEDS: GABAPENTIN 300 MG CAPSULE. PO SCH ×2 (09:47→13:34)
[2020-11-02] MEDS: CETIRIZINE HCL 10 MG TABLET. PO SCH (09:47)
[2020-11-02] MEDS: LACTOBACILLUS RHAMNOSUS GG 1 CAPSULE. PO SCH (09:47)
[2020-11-02] MEDS: LORazepam 0.5 MG TABLET PO SCH (09:47)
[2020-11-02] MEDS: CYCLOBENZAPRINE 10 MG TABLET. PO SCH ×2 (09:47→13:34)
[2020-11-02] MEDS: AMOXICILLIN/K CLAV 875/125MG TABLET. PO SCH (09:47)
[2020-11-02] MEDS: ENOXAPARIN 40 MG/0.4 ML SYRINGE. SQ SCH (09:48)
--- NOTE | 2020-11-02 10:10 | DS ---
DATE OF DISCHARGE: 11/02/2020 HOSPITAL COURSE: The patient is a 49-year-old -[place] male patient who was seen originally at the [facility] Emergency Room with a complaint of shortness of breath. The patient stated that his symptoms started about 4 days prior to arrival to the emergency room without any known inciting events or trauma. He denied any insect bite or other concerning exposure. He initially reported upper respiratory tract infection like symptoms with runny nose, nasal congestion that he reports migrated to his lungs. He was extensively investigated in the emergency room. He has received his COVID vaccine twice. His lab work showed that his white cell count was 22,900. His blood gases was acidotic with mild carbon dioxide retention. His chemistry showed creatinine has risen to 2.4. He also has low magnesium. His chest x-ray showed a right upper lobe consolidation, treated initially with BiPAP machine and given his acute hypoxic hypercapnic respiratory failure, pneumonia, as well as acute kidney injury, the patient was transferred to [facility], admitted to the ICU where he continued on BiPAP and eventually on oxygen. He was treated with IV antibiotic, IV fluid. I held his lisinopril and indomethacin as he is known to have gout and was on indomethacin and allopurinol and he gradually improved. PHYSICAL EXAMINATION: GENERAL: When I saw him today, he was resting almost flat in bed, in no apparent respiratory distress. There was no pallor, jaundice, cyanosis, or thyromegaly. No jugular distention. No limb edema. VITAL SIGNS: His heart rate was 91, blood pressure was 129/78, temperature was 97.9, respiratory rate was 17 and oxygen saturation was 94% on 2 liters of oxygen. HEAD, EYES, EARS, NOSE AND THROAT: Normocephalic, atraumatic. NECK: Supple. HEART: Showed normal first and second heart sounds, no gallop, murmur. CHEST: Clear to auscultation. No crepitation or rhonchi. ABDOMEN: Distended, soft, nontender. NEUROLOGIC: He is awake, alert, responding appropriately. Cranial nerves intact. He moves extremities without difficulty, ambulates without assistance or assistive devices. LABORATORY DATA: Showed a serum sodium 145, potassium 4, chloride 105, bicarbonate 37, anion gap of 3, BUN 15, creatinine 1, estimated GFR was 95 mL per minute. His glucose was 72, calcium was 9. Most recent white cell count was 11,900, hemoglobin 10, hematocrit 33, MCV 88 and platelet count 211,000. DISCHARGE MEDICATIONS: He was discharged home to continue on Augmentin 875 mg twice a day for 7 more days. Continue with allopurinol 300 mg once a day, amlodipine 10 mg once a day, atorvastatin calcium 20 mg at bedtime, cetirizine 10 mg daily, cyclobenzaprine 10 mg 3 times a day, gabapentin 300 mg 3 times a day, hydrocodone/APAP 5/325 one tablet twice a day. He is on Lantus insulin 50 units at bedtime, lisinopril 20 mg once a day, lorazepam 0.5 mg once a day, omeprazole 40 mg once a day, sertraline or Zoloft 50 mg once a day, and trazodone 100 mg once a day. I discontinued his indomethacin. FINAL DISCHARGE DIAGNOSES: 1. Acute on chronic hypoxic hypercapnic respiratory failure, improved. He will need a 6-minute walk and probably needs at least 2 liters of oxygen. 2. Community-acquired pneumonia, improving clinically. His white cell count is down and he is afebrile, hemodynamically stable. 3. Acute kidney injury, resolved. His creatinine is down to 1 mg. 4. Morbid obesity, obstructive sleep apnea. 5. Poorly controlled type 2 diabetes mellitus. 6. Hypertension. The patient was discharged. Continue on oral Augmentin. Continue with outpatient physical and occupational therapy. He will probably need a sleep study follow up with Dr. Calderon in his office. LIANNE DR: Saravanan TID: [id number]
--- NOTE | 2020-11-02 10:12 | PDOC ---
PULMONARY PROGRESS NOTES DATE: 11/02/20 TIME: 10:12 Subjective pt. resting on N/C no overnight events no SOA or cough Vitals Vital Signs Date Time Temp Pulse Resp B/P (MAP) Pulse Ox O2 Delivery O2 Flow Rate FiO2 11/02/20 09:47 91 129/78 11/02/20 07:00 97.9 17 94 Nasal Cannula 2.0 97.9 ROS: No Nausea, No Chest Pain, No Abdominal Pain, No Increase Cough General: Alert, Oriented X4, No acute distress HEENT: Other Lungs: Clear Cardiovascular: S1, S2 Abdomen: Soft, Non-tender, Other (obese) Neuro Exam: Alert Skin: Warm Labs Laboratory Tests Test 10/31/20 12:37 10/31/20 17:48 10/31/20 21:05 11/01/20 05:50 Glucose (Fingerstick) 119 mg/dL (70-99) 176 mg/dL (70-99) 265 mg/dL (70-99) Sodium Level 145 mmol/L (136-145) Potassium Level 4.0 mmol/L (3.5-5.1) Chloride Level 105 mmol/L (98-107) Carbon Dioxide Level 37 mmol/L (21-32) Anion Gap 3 (6-14) Blood Urea Nitrogen 15 mg/dL (8-26) Creatinine 1.0 mg/dL (0.7-1.3) Estimated GFR (Cockcroft-Gault) 95.7 Glucose Level 72 mg/dL (70-99) Calcium Level 9.0 mg/dL (8.5-10.1) Test 11/01/20 06:52 11/01/20 07:54 11/01/20 10:55 11/01/20 16:13 Glucose (Fingerstick) 53 mg/dL (70-99) 120 mg/dL (70-99) 125 mg/dL (70-99) 234 mg/dL (70-99) Test 11/01/20 20:52 11/02/20 07:22 Glucose (Fingerstick) 189 mg/dL (70-99) 103 mg/dL (70-99) Laboratory Tests Test 11/01/20 10:55 11/01/20 16:13 11/01/20 20:52 11/02/20 07:22 Glucose (Fingerstick) 125 mg/dL (70-99) 234 mg/dL (70-99) 189 mg/dL (70-99) 103 mg/dL (70-99) Medications Active Scripts Medications Dose Route/Sig Max Daily Dose Days Date Category Dose Instructions Cyclobenzaprine Hcl 10 Mg Tablet 1 Tab PO TID 10/28/20 Reported Cetirizine Hcl 10 Mg Tablet 1 Tab PO DAILY 10/28/20 Reported Trazodone Hcl 100 Mg Tablet 1 Tab PO QHS 10/28/20 Reported Omeprazole 40 Mg Capsule.dr 1 Cap PO DAILY 10/28/20 Reported Lisinopril 20 Mg Tablet 1 Tab PO DAILY 10/28/20 Reported Lantus Solostar (Insulin Glargine,Hum.rec.anlog) 100 Unit/1 Ml Insuln.pen 50 Unit SQ QHS 10/28/20 Reported Indomethacin 25 Mg Capsule Unknown Dose PO TID 10 10/28/20 Reported with food Gabapentin (Gabapentin) 300 Mg Capsule 300 Mg PO TID 10/28/20 Reported Atorvastatin Calcium 20 Mg Tablet 1 Tab PO DAILY 10/28/20 Reported Amlodipine Besylate 10 Mg Tablet 10 Mg PO DAILY 10/28/20 Reported Allopurinol 300 Mg Tablet 1 Tab PO DAILY 10/28/20 Reported Hydrocodone-Apap 5-325 (Hydrocodone Bit/Acetaminophen) 1 Each Tablet 2 Tab PO BID PRN 04/07/15 Reported Lorazepam 0.5 Mg Tablet 1 Tab PO BID 04/07/15 Reported Zoloft (Sertraline Hcl) 50 Mg Tablet 1 Tab PO DAILY 04/07/15 Reported Lantus Solostar (Insulin Glargine,Hum.rec.anlog) 100 Unit/1 Ml Insuln.pen 50 Unit SQ QHS 04/07/[address] of chest Right upper lobe consolidations with multifocal ground glass opacities bilaterally, concerning for pneumonia. Recommend short-term follow-up after treatment. Impression . IMPRESSION: 1. Acute hypoxemic hypercapnic respiratory failure--improved 2. Abnormal chest x-ray, right upper lobe infiltrate compatible with gram-negative, possibly gram-positive pneumonia. 3. Morbid obesity. 4. Obstructive sleep apnea-- unable to afford cpap 5. Diabetes mellitus. 6. Acute on chronic kidney disease--stable 7. History of alcoholism. 8. Leukocytosis. improving 9. Hyperkalemia. resolved 10. Protein malnutrition present upon admission. 11. Status post COVID-19 vaccination. 12. Obstructive sleep apnea, possibly hypoventilation syndrome. Plan . PLAN: Continue supplemental oxygen to keep sats above 92% 6 min walk before DC, required 1 liter NC with ambulation Follow ID recs-- po Augmentin Follow Renal recs CPAP at HS discussed importance of compliance Pt. will need outpatient sleep Polysomnogram DVT/GI PPX ok to DC from our standpoint Discussed W/ RICHARD ENRIQUEZ MD Nov 02, 2020 10:12
--- NOTE | 2020-11-02 10:57 | NUR ---
SW following. Discussed with RN, discharge order for home with self care. Pt did 6 minute walk, requiring 1L with exertion. SW met with pt, explained SW was unable to find home health for pt. Pt agreeable to do outpatient therapy, although feels he is doing better. Pt agreeable to oxygen at home, does not have a preference of provider. SW faxed referral to [facility], awaiting confirmation of acceptance. RN notified. SW will continue to follow.
--- NOTE | 2020-11-02 10:57 | PDOC ---
DATE OF SERVICE DATE: 11/02/20 TIME: 10:54 SUBJECTIVE ROS stable OBJECTIVE Vital Signs Vital Signs Date Time Temp Pulse Resp B/P (MAP) Pulse Ox O2 Delivery O2 Flow Rate FiO2 11/02/20 09:47 91 129/78 11/02/20 08:05 Nasal Cannula 2.0 11/02/20 07:00 97.9 17 94 97.9 I & 0 Intake and Output 11/02/20 07:00 Intake Total 120 ml Output Total 1200 ml Balance -1080 ml Intake Oral 120 ml Output Urine Total 1200 ml PHYSICAL EXAM Physical Exam GENERAL: Morbidly obese HEENT: Normocephalic, atraumatic. OM moist NECK: Supple. LUNGS: Decreased breath sounds on the right upper lobe and bases, HEART: S1, S2, tachycardia. ABDOMEN: Obese, soft, nontender, nondistended. Bowel sounds present. EXTREMITIES: No edema, no cyanosis , NEUROLOGIC: Alert and oriented x 3, grossly nonfocal. PSYCHIATRIC: Calm and cooperative. DERM: Warm, dry, no generalized rash Ahn +, No CVA or SP tenderness DIAGNOSIS/ASSESSMENT Assessment & Plan ANUPAMA - ATN/ urinary retention , Resolved supportive care, strict i/o, avoid nephrotoxins Urinary retention - Bladder scan ordered at presentation with- 850 ml Urine . Prior to dc voiding trial after ahn dced , fu with PCP and/or Urology if indicated . HyperKalemia POA - resolved Recent gastroenteritis - ANUPAMA /Dehydration Urinary retention - as above , No prior Dx of BPH per patient, follows with his PCP Acute hypoxic respiratory failure much improved Right upper lobe pneumonia - Abx , ID managing Leukocytosis, also received prednisone at outside hospital. Diabetes mellitus, poorly controlled. History of fall. Will sign off COMMENT/RELEVANT DATA Meds Current Medications Medications (Trade) Dose Ordered Sig/Bobby Start Time Stop Time Status Last Admin Dose Admin Acetaminophen/ Hydrocodone Bitart (Lortab 5/325) 2 tab PRN TID PRN 11/02/20 03:45 11/02/20 06:09 2 TAB Albuterol Sulfate (Ventolin Neb Soln) 2.5 mg RTQID 10/28/20 20:00 11/02/20 06:52 2.5 MG Amlodipine Besylate (Norvasc) 10 mg DAILY 10/29/20 09:00 11/02/20 09:47 10 MG Amoxicillin/ Clavulanate Potassium (Augmentin 875/ 125mg) 1 tab BID 11/01/20 21:00 11/02/20 09:47 1 TAB Atorvastatin Calcium (Lipitor) 20 mg QHS 10/28/20 21:00 11/01/20 20:56 20 MG Azithromycin 250 mg/Sodium Chloride 250 ml @ 250 mls/hr Q24H 10/29/20 13:00 11/01/20 09:22 DC 10/31/20 13:27 250 MLS/HR Calcium Gluconate (Calcium Gluconate) 1,000 mg 1X ONCE 10/29/20 06:30 10/29/20 06:31 DC 10/29/20 06:28 1,000 MG Ceftriaxone Sodium (Rocephin) 1 gm Q24H 10/29/20 13:00 10/29/20 09:09 DC Cetirizine HCl (ZyrTEC) 10 mg DAILY 10/29/20 09:00 11/02/20 09:47 10 MG Cyclobenzaprine HCl (Flexeril) 10 mg TID 10/28/20 21:00 11/02/20 09:47 10 MG Dextrose (Dextrose 50%-Water Syringe) 12.5 gm PRN Q15MIN PRN 10/30/20 07:30 UNV Dextrose (Iv Dextrose 5%) 250 ml PRN Q15MIN PRN 10/29/20 09:00 UNV Enoxaparin Sodium (Lovenox 40mg Syringe) 40 mg Q12HR 10/29/20 21:00 11/02/20 09:48 40 MG Gabapentin (Neurontin) 300 mg TID 10/28/20 21:00 11/02/20 09:47 300 MG Indomethacin (Indocin) 25 mg TID 10/28/20 21:00 10/29/20 08:12 DC 10/28/20 21:17 25 MG Insulin Glargine (Lantus Syringe) 50 unit QHS 10/28/20 21:00 11/01/20 21:08 50 UNIT Insulin Human Lispro (HumaLOG) 0-9 UNITS TIDWMEALS 10/30/20 08:00 11/01/20 17:59 5 UNITS Insulin Human Regular (HumuLIN R VIAL) 10 unit 1X ONCE 10/29/20 07:00 10/29/20 07:01 DC 10/29/20 06:38 10 UNIT Lactobacillus Rhamnosus (Culturelle) 1 cap BID 10/29/20 21:00 11/02/20 09:47 1 CAP Latanoprost (Xalatan) 1 drop QHS 10/31/20 21:00 11/01/20 20:56 1 DROP Lisinopril (Prinivil) 20 mg DAILY 10/29/20 09:00 10/29/20 08:12 DC Lorazepam (Ativan) 0.5 mg BID 10/28/20 21:00 11/02/20 09:47 0.5 MG Non-Formulary Medication (Insulin Glargine,Hum.rec.anlog (Lantus Solostar)) 50 unit QHS 10/28/20 21:00 UNV Pantoprazole Sodium (Protonix) 40 mg DAILYAC 10/29/20 07:30 11/02/20 06:09 40 MG Piperacillin Sod/ Tazobactam Sod 3.375 gm/Sodium Chloride 50 ml @ 100 mls/hr Q6HRS 10/29/20 10:00 11/01/20 09:22 DC 11/01/20 06:12 100 MLS/HR Sertraline HCl (Zoloft) 50 mg DAILY 10/29/20 09:00 11/02/20 09:47 50 MG Sodium Bicarbonate (Sodium Bicarb Adult 8.4% Syr) 50 meq 1X ONCE 10/29/20 07:00 10/29/20 07:01 DC 10/29/20 06:37 50 MEQ Sodium Chloride 1,000 ml @ 100 mls/hr Q10H 10/29/20 08:45 10/31/20 06:06 DC 10/30/20 21:00 100 MLS/HR Trazodone HCl (Desyrel) 100 mg QHS 10/28/20 21:00 11/01/20 20:55 100 MG Lab Laboratory Tests Test 11/01/20 10:55 11/01/20 16:13 11/01/20 20:52 11/02/20 07:22 Glucose (Fingerstick) 125 mg/dL (70-99) 234 mg/dL (70-99) 189 mg/dL (70-99) 103 mg/dL (70-99) Results All relevant outside records, renal labs, imaging studies, telemetry/EKG's were reviewed. Justicifation of Admission Dx: Justifications for Admission: Justification of Admission Dx: N/A MAYELA GUZMAN MD Nov 02, 2020 10:56
[2020-11-02 11:00] VITALS: BP 167/103
--- NOTE | 2020-11-02 15:35 | NUR ---
Patient discharged home today with self care via wheelchair accompanied by aid and family member. Patient is stable, IV removed, prescriptions, and discharge paper work given to patient. Patient going home with 1 L oxygen during activities and RA at rest per RT recommendation after six minutes walk. Patient verbalized understanding of follow up and discharge instruction.
== END 2020-11-02 15:46 | disposition home or self-care (01) | DRG 871 ==
LOC: 1 WEST ICU 17:59 → 4 NORTH 10-31 19:40
PROVIDERS: ADMIT Internal Medicine; ATTEND Internal Medicine
PROC: 5A09357 Assistance with Respiratory Ventilation, Less than 24 Consecutive Hours, Continuous Positive Airway Pressure (ICD-10-PCS; principal; 2020-10-29)
PROC: 5A09357 Assistance with Respiratory Ventilation, Less than 24 Consecutive Hours, Continuous Positive Airway Pressure (ICD-10-PCS; 2020-10-30)
PROC: 5A09357 Assistance with Respiratory Ventilation, Less than 24 Consecutive Hours, Continuous Positive Airway Pressure (ICD-10-PCS; 2020-10-31)
DX: A41.9 Sepsis, unspecified organism (principal); J18.1 Lobar pneumonia, unspecified organism; J96.21 Acute and chronic respiratory failure with hypoxia; J96.22 Acute and chronic respiratory failure with hypercapnia; N17.0 Acute kidney failure with tubular necrosis; E46 Unspecified protein-calorie malnutrition; Z68.42 Body mass index [BMI] 45.0-49.9, adult; E11.22 Type 2 diabetes mellitus with diabetic chronic kidney disease; E11.65 Type 2 diabetes mellitus with hyperglycemia; E66.01 Morbid (severe) obesity due to excess calories; E87.5 Hyperkalemia; G47.33 Obstructive sleep apnea (adult) (pediatric); G89.29 Other chronic pain; I12.9 Hypertensive chronic kidney disease with stage 1 through stage 4 chronic kidney disease, or unspecified chronic kidney disease; J45.909 Unspecified asthma, uncomplicated; N18.9 Chronic kidney disease, unspecified; F10.20 Alcohol dependence, uncomplicated; F32.9 Major depressive disorder, single episode, unspecified; F41.9 Anxiety disorder, unspecified; E11.42 Type 2 diabetes mellitus with diabetic polyneuropathy; K21.9 Gastro-esophageal reflux disease without esophagitis; E66.9 Obesity, unspecified; D72.829 Elevated white blood cell count, unspecified; R33.9 Retention of urine, unspecified; Z82.49 Family history of ischemic heart disease and other diseases of the circulatory system; Z82.5 Family history of asthma and other chronic lower respiratory diseases; Z83.3 Family history of diabetes mellitus; Z87.891 Personal history of nicotine dependence
CPT/HCPCS: 36415; 36600; 71045; 71250; 80048; 80053; 82805; 82962; 84550; 85007; 85025; 85027; 87040; 87449; 94618; 94640; 94660; 94760; J0456; J0610; J1650; J1815; J2543; J3490; J7030; J7050; 97110-GP; 97116-GP; 97535-GO; G0378; J7613